=== PATIENT | male | born 1950 | race Caucasian/White ===

== ENCOUNTER 2019-01-12 23:26 | Inpatient (IN) | payer MEDICAID, OTHER ==
[~2019-01-12] VITALS: Ht 180.3 cm; Wt 134.3 kg
[2019-01-12 23:30] VITALS: BP 133/102
--- NOTE | 2019-01-12 23:39 | NUR ---
PT AMBULATED TO ER BED 01
[2019-01-12] MEDS ORDERED: NACL 0.9% 500 ML IV SCH (23:45)
--- NOTE | 2019-01-13 00:14 | NUR ---
PT TO ED BIB FAMILY WITH C/O CONFUSION X 1 DAY. PT IS ALERT TO NAME, BIRTHDAY, PLACE, AND EVENT. PT DENIES ANY RECENT FALL OR TRAUMA. PT IS ANSWERING QUESTIONS WITH APPROPRIATE RESPONSES BUT GARBLED, MUMBLED SPEECH. PERIORBITAL SWELLING NOTED. ARM HACK DRIVER EQUAL. PUPILS ARE EQUAL AND REACTIVE WITH NORMAL SIZE. PT PLACED INTO BED, PENDING MD VOGT.
[2019-01-13 00:31] LABS: BASOPHILS % (AUTO) 0.3 % (0.0-2.0); EOSINOPHILS # (AUTO) 0.1 K/uL (0-0.4); EOSINOPHILS % (AUTO) 1.2 % (0.0-4.0); HEMATOCRIT 35.1 % (36-52); HEMOGLOBIN 11.8 g/dL (12.0-18.0); LYMPHOCYTES % (AUTO) 12.9 % (20.5-51.1); MEAN CORPUSCULAR HEMOGLOBIN 33 pg (27-31); MEAN CORPUSCULAR HGB CONC 34 g/dL (33-37); MONOCYTES # (AUTO) 0.5 K/uL (0.8-1.0); MONOCYTES % (AUTO) 5.9 % (1.7-9.3); NEUTROPHILS # (AUTO) 6.4 K/uL (1.8-7.7); NEUTROPHILS % (AUTO) 79.7 % (42.2-75.2); PLATELET COUNT (AUTO) 151 K/uL (140-450); RED BLOOD CELL COUNT(AUTO) 3.58 MIL/uL (4.20-6.10)
[2019-01-13 01:40] LABS: CARBON DIOXIDE 30.4 mmol/L (21-32); CREATININE 1.4 mg/dL (0.7-1.3); POTASSIUM 3.4 mmol/L (3.5-5.1)
[2019-01-13] MEDS ORDERED: LISI-420 PO (01:45)
[2019-01-13] MEDS ORDERED: ZYL300 PO (01:45)
[2019-01-13] MEDS ORDERED: RIVA20TA PO (01:45)
[2019-01-13] MEDS ORDERED: TAMS0.4C96 PO (01:45)
[2019-01-13] MEDS ORDERED: FURO40TA9 PO (01:45)
[2019-01-13] MEDS ORDERED: BUS5 PO (01:45)
[2019-01-13] MEDS ORDERED: METO25TE2 PO (01:45)
[2019-01-13] MEDS ORDERED: SIMV40TA1 PO (01:45)
[2019-01-13 01:47] LABS: APPEARANCE,URINE CLEAR (CLEAR); BILIRUBIN,URINE NEGATIVE (NEGATIVE); BLOOD, URINE TRACE-I (NEGATIVE); COLOR,URINE YELLOW (YELLOW); LEUKOCYTE ESTERASE ,URINE NEGATIVE (NEGATIVE); NITRITE, URINE NEGATIVE (NEGATIVE); UGLUCOSE NEGATIVE (NEGATIVE)
[2019-01-13] MEDS ORDERED: ENOXAPARIN 40 MG/0.4 ML SYR SUBQ ONE (01:50)
[2019-01-13] MEDS ORDERED: ENOXAPARIN 100 MG/ML SYR SUBQ ONE (01:50)
[2019-01-13 02:36] LABS: TOTAL BILIRUBIN 0.7 mg/dL (0.0-1.0)
--- NOTE | 2019-01-13 02:36 | NUR ---
PT SLEEPING AT THIS TIME. NO DISTRESS NOTED. ALL MEDICATIONS GIVEN ORDERED, PT TOLERATED WELL.
[2019-01-13 02:39] LABS: ALBUMIN 3.7 g/dL (3.4-5.0)
[2019-01-13 02:47] LABS: WBC,URINE 0-5 /HPF (0-5)
[2019-01-13] MEDS ORDERED: LORazepam 2 MG/ML VIAL IVP PRN (02:50)
[2019-01-13] MEDS ORDERED: MORPHINE SULFATE 2 MG/ML SYR IVP PRN (02:50)
[2019-01-13] MEDS ORDERED: MORPHINE SULFATE 4 MG/ML SYR IVP PRN (02:50)
--- NOTE | 2019-01-13 03:45 | NUR ---
RECEIVED BEDSIDE REPORT FROM JASON IGLESIAS. PT IS AAO 2-3. ON ROOM AIR. RESPIRATIONS ARE EQUAL AND UNLABORED. PT HAS SMALL CUT ON R ELBOW AND KNEE. IV ON LAC 20G SL. PT WITH A-FIB PER NURSE WILL GO TO . RECEIVED LOVENOX IN ER. C/C ALOC PER FAMILY. VOICE IS MUFFLED AND DIFFICULT TO UNDERSTAND. HAS PERIORBITAL SWELLING AND PALE. SWELLING ON LIPS. PITTING ON LOWER EXTREMITIES NON PITTING. PATIENT PUT ON FALL PRECAUTION. MRSA SWAB OBTAINED. VS ARE STABLE. PLAN OF CARE DISCUSSED. CALL LIGHT WITHIN REACH
--- NOTE | 2019-01-13 03:45 | NUR ---
Patient will be admitted to care of DR MUSA. Admited to TELEMETRY. Will go to room 105-A. Belongings list completed. Report to HARRIS CASTILLO.
[2019-01-13 04:00] VITALS: BP 130/97
--- NOTE | 2019-01-13 04:30 | NUR ---
PATIENT IS IN BED. ABLE TO ANSWER QUESTION BUT DIFFICULT TO UNDERSTAND. VOICE IS MUFFLED. PT WITH INCREASING RESTLESS. VS STABLE. FALL PRECAUTION IN PLACE. WILL CONTINUE TO MONITOR CLOSELY.
[2019-01-13] MEDS: NACL 0.9% 1,000 ML IV SCH ×2 (04:32→13:57)
[2019-01-13] MEDS: LEVOTHYROXINE 0.05 MG TAB PO SCH (05:36)
--- NOTE | 2019-01-13 05:46 | NUR ---
PATIENT SHOWED ON EKG RHYTHM A TWO SECOND PAUSE. PT REMAINS AAOX3. Addendum: 01/13/19 at 0632 by Belle Luis RN VS: 123/77 97HR, 95% 16 97.4
--- NOTE | 2019-01-13 06:25 | NUR ---
PATIENT RESTLESS. CHARGE NURSE IN TO SEE PATIENT. VS: 133/68 HR 104 97% 2L O2. WILL CONTINUE TO MONITOR.
--- NOTE | 2019-01-13 07:05 | NUR ---
GAVE BEDSIDE REPORT TO ROXANA RN. PT STILL REMAINS RESTLESS IN BED. OPENS EYES ON COMMAND. KNOWS NAME. DATE OF AND PLACE. VITAL SIGNS ARE STABLE BLOOD SUGAR 128. ENDORSED FOR CONTINUITY POC.
--- NOTE | 2019-01-13 07:06 | NUR ---
RECEIVED REPORT FROM PM NURSE TA BEDSIDE. PT VERY AGITATED, KEEPS PULLING OUT THINGS , HAS WHITISH SALIVA SECRETION FROM HIS MOUTH AT THIS TIME. VS RECORDED BP 121/81, T 97.2, HR 92, RR 20, O2 97% ON NC 3LPM. BS RECORDED 128. PT APPEARS RESTLESS. ATIVAN 0.5 ML ADMINISTERED BY PM NURSE AROUND 0537. PAGED DR MACHUCA. WAITING FOR HIS CALL.
[2019-01-13 08:00] VITALS: BP 121/81
--- NOTE | 2019-01-13 08:15 | NUR ---
RAPID RESPONSE CALLED ON PT . PT LESS RESPONDING AND HIGHLY AGITATED. PT WAS ADMINISTERED ATIVAN IN AM. ER MD CAME, CHECKED ON THE PT. VS BP 118/82, 81, O2 SAT 98% ON 3LPM, RR 20. PT HAS WHITISH SALIVA SECRETION FROM THE MOUTH. PER PM NURSE, PT DROVE HOME FROM [place]OR[place] AND WAS BROUGHT IN TO ER BY HIS SON WHEN PT STARTED APPEARING PALE AND ALOC. ALL SAFETY MEASURE IN PLACE. IVF INFUSING WELL. WILL CONTINUE TO MONITOR PT.
--- NOTE | 2019-01-13 08:34 | NUR ---
PATIENT HAS BEEN SCREENED AND CATEGORIZED HIGH NUTRITION RISK. PATIENT WILL BE SEEN WITHIN 1-2 DAYS OF ADMISSION. 01/13/19-01/14/[address]
--- NOTE | 2019-01-13 09:29 | NUR ---
MD SHANKAR CALLED BACK. UPDATED HIM ON PT STATUS. RECEIVED ORDER TO DISCONTINUE ATIVAN , FOR SOFT RESTRAIN FOR AGITATION AND ORDERED TO PUT DR. AVERY FOR CARDIAC CONSULT. PER MD SIMPSON, CONTINUE TO MONITOR PT. UPDATED ON PT HAVING WHITISH SECRETION FORM HIS MOUTH, PT MORE AGITATED AND LESS RESPONSIVE THEN BEFORE. PT KEEPS MOVING ALL HIS EXTREMITY , STILL AGITATED. WILL KEEP MONITORING THE PT.
--- NOTE | 2019-01-13 09:39 | NUR ---
APPLIED SOFT RESTRAIN ON PTS BOTH WRIST PER MD ORDER. PT PULLING HIS IV TUBINGS AND TRYING TO GET OUT OF THE BED. PT STILL AGITATED, KEEPS MOVING HIS EXTREMITY ALL THE TIME. KEEPS MAKING LOUD VOICE , HAS CONTINUOS WHITISH SECRETION FORM HIS MOUTH. MD AWARE. WILL KEEP MONITORING THE PT. DR AVERY ON THE CASE FOR HIGH TROPONIN LEVEL. WILL CONTINUE TO MONITOR PT.
--- NOTE | 2019-01-13 10:36 | NUR ---
HALAL MEAT PACKER AT THE BEDSIDE, CHANGING PT. PULLED AND REPOSITIONED PT. STILL APPEARS AGITATED, TOOK HIS RT WRIST RESTRAIN OFF. WILL CONTINUE TO MONITOR PT.
--- NOTE | 2019-01-13 11:22 | NUR ---
PT MOVING HIS EXTREMITY . KICKING THE BED AND THROWING THE SIDE RAILS PADDING. PT STATES HAS PAIN, WANTS MEDS FOR PAIN. ADMINISTERED PAIN MEDS ORDERED. VS STABLE . WILL CONTINUE TO MONITOR PT.
[2019-01-13 12:00] VITALS: BP 122/83
--- NOTE | 2019-01-13 13:40 | NUR ---
HR AT THIS 64 AT THIS TIME. FAMILY AT THE BEDSIDE. STARTED IV LINE ON RT WRIST 22 G. WILL CONTINUE TO MONITOR PT.
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
--- NOTE | 2019-01-13 14:22 | NUR ---
01/13/19 RD INITIAL ASSESSMENT COMPLETED PLEASE REFER TO NUTRITION ASSESSMENT UNDER CARE ACTIVITY FOR ESTIMATED NUTRITIONAL NEEDS. RD RECOMMENDATIONS: 1. RECOMMEND ADVANCE DIET TOELRATED TO CARDIAC DUE TO ELEVATED TROPONIN. 2. RD WILL F/U 2-3DAYS; HIGH RISK. RUCHI BISHOP, RD
[2019-01-13] MEDS ORDERED: IBUP1TAB PO (14:25)
[2019-01-13] MEDS ORDERED: CEPH250C16 PO (14:25)
[2019-01-13] MEDS ORDERED: FLUMAZENIL 0.5 MG/5 ML VIAL IVP SCH (15:20)
[2019-01-13 16:00] VITALS: BP 110/79
[2019-01-13] MEDS: CEPHALEXIN 500 MG CAP PO SCH ×2 (17:00→21:07)
--- NOTE | 2019-01-13 17:00 | NUR ---
CHECKED ON THE PT. FAMILY AT THE BEDSIDE. PT MORE AWAKE THAN BEFORE , DID BEDSIDE EVALUATION, PT PARTIALLY ABLE TO SWALLOW THE APPLE SAUCE. PT NOTIFIED THAT HIS ORAL MEDS WILL BE PUT ON HOLD AT THIS TIME. WILL CONTINUE TO MONITOR PT.
--- NOTE | 2019-01-13 19:30 | NUR ---
RECEIVED BEDSIDE REPORT FROM DAY SHIFT NURSE. PATIENT AWAKE, ALERT, AND COOPERATIVE. FAMILY AT BEDSIDE. RESPIRATION EVEN UNLABORED ON 2L NC. SKIN IS WARM AND DRY. IV PATENT AND INTACT. PLAN OF CARE WAS DISCUSSED. ALL SAFETY MEASURES IN PLACE. BED IS AT LOW POSITION. CALL LIGHT WITHIN REACH AND VERBALIZES ITS USE. WILL CONTINUE TO MONITOR.
--- NOTE | 2019-01-13 19:37 | NUR ---
PT RESTRAIN CANCELLED. PT MORE AWAKE AND ALERT. PT STABLE AT THIS TIME.
--- NOTE | 2019-01-13 19:38 | NUR ---
ENDORSED PT TO PM NURSE AT BEDSIDE. PT IN STABLE CONDITION.
[2019-01-13 20:00] VITALS: BP 110/79
--- NOTE | 2019-01-13 20:00 | NUR ---
INITIAL ASSESSMENT DONE. PATIENT IS MORE AWAKE NOW. ABLE TO FOLLOW COMMANDS. VITALS WERE TAKEN. FAMILY AT BEDSIDE. WILL CONTINUE TO MONITOR.
--- NOTE | 2019-01-13 21:00 | NUR ---
ALL SCHEDULED MEDS WERE GIVEN PER ORDER. NO ASE NOTED. WILL CONTINUE TO MONITOR.
[2019-01-13] MEDS: SIMVASTATIN 40 MG TAB PO SCH (21:07)
[2019-01-13] MEDS: RIVAROXABAN 10 MG TAB PO SCH (21:08)
[2019-01-13] MEDS: BLOOD GLUCOSE MONITORING 1 DEV DEV FS SCH (21:15)
--- NOTE | 2019-01-13 22:00 | NUR ---
PATIENT WATCHING TV WITH FAMILY AT BEDSIDE. RESPIRATION EVEN UNLABORED ON 2L NC. NO DISTRESS NOTED. WILL CONTINUE TO MONITOR
[2019-01-14] VITALS (26 sets, daily range): BP systolic 64–136; BP diastolic 44–94
--- NOTE | 2019-01-14 | NUR ---
VITALS WERE TAKEN. PATIENT CONDITION STABLE. NO DISTRESS NOTED. WILL CONTINUE TO MONITOR
[2019-01-14] MEDS: NACL 0.9% 1,000 ML IV SCH ×3 (00:57→22:26)
--- NOTE | 2019-01-14 02:00 | NUR ---
CHECKED PATIENT. PATIENT SLEEPING RESPIRATION EVEN UNLABORED ON 2L NC. NO DISTRESS NOTED. WILL CONTINUE TO MONITOR
--- NOTE | 2019-01-14 04:00 | NUR ---
VITALS WERE TAKEN. PATIENT KEEPS MOVING ALL HIS EXTREMITY AND APPEARED TO BE RESTLESS. WILL CONTINUE TO MONITOR
[2019-01-14] MEDS: LEVOTHYROXINE 0.05 MG TAB PO SCH (06:21)
[2019-01-14] MEDS: BLOOD GLUCOSE MONITORING 1 DEV DEV FS SCH ×4 (06:25→21:12)
--- NOTE | 2019-01-14 06:34 | NUR ---
PATIENT ACCIDENTALLY PULLED HIS IV. NO ACTIVE BLEEDING SEEN. CANNULA INTACT. INSERTED NEW IV SITE LEFT HAND 24 G. WILL CONTINUE TO MONITOR
[2019-01-14 06:55] LABS: BASOPHILS % (AUTO) 0.2 % (0.0-2.0); EOSINOPHILS # (AUTO) 0.1 K/uL (0-0.4); HEMOGLOBIN 11.9 g/dL (12.0-18.0); LYMPHOCYTES # (AUTO) 0.8 K/uL (2.0-11.5); LYMPHOCYTES % (AUTO) 11.2 % (20.5-51.1); MEAN CORPUSCULAR HEMOGLOBIN 33 pg (27-31); MEAN CORPUSCULAR HGB CONC 33 g/dL (33-37); MEAN CORPUSCULAR VOLUME 98.9 fL (80-94); MONOCYTES # (AUTO) 0.3 K/uL (0.8-1.0); MONOCYTES % (AUTO) 4.3 % (1.7-9.3); NEUTROPHILS # (AUTO) 6.3 K/uL (1.8-7.7); NEUTROPHILS % (AUTO) 83.3 % (42.2-75.2); PLATELET COUNT (AUTO) 146 K/uL (140-450); RED BLOOD CELL COUNT(AUTO) 3.64 MIL/uL (4.20-6.10); RED CELL DISTRIBUTION WIDTH 16.4 % (11.6-13.7); WHITE BLOOD COUNT (AUTO) 7.5 K/uL (4.8-10.8)
--- NOTE | 2019-01-14 07:12 | NUR ---
ENDORSED PATIENT TO DAY SHIFT NURSE. PATIENT CONDITION STABLE
[2019-01-14 07:13] LABS: ALBUMIN 3.6 g/dL (3.4-5.0); ANION GAP 8.8 (8-16); CARBON DIOXIDE 30.8 mmol/L (21-32); MAGNESIUM 2.2 mg/dL (1.8-2.4); PHOSPHORUS 3.2 mg/dL (2.5-4.9); POTASSIUM 3.6 mmol/L (3.5-5.1); TOTAL BILIRUBIN 0.6 mg/dL (0.0-1.0)
--- NOTE | 2019-01-14 08:08 | NUR ---
RECEIVED REPORT FROM PM NURSE . PT MOVING AROUND, RESPONSIVE TO VOICE. OPENS HIS EYES WHEN CALLED BY HIS NAME AND ABLE TO FOLLOW COMMAND. APPEARS RESTLESS AND KEEPS MOVING AROUND. PT TAKES HIS NC OFF ALL THE TIME, AND PULLS HIS IV OUT. REORIENTED PT THAT HE IS IN THE HOSPITAL, WILL BE TAKEN GOOD CARE OF. PT STATES HE UNDERSTANDS. IV LINE ON HIS LFT WRIST. INFORMED HIM NOT TO TAKE HIS IV OUT AND KEEP OXYGEN ON. STATES WILL. PT NEEDS CONTINUOUS MONITORING. WILL CONTINUE TO MONITOR PT.
[2019-01-14] MEDS: metFORMIN 500 MG TAB PO SCH ×2 (09:00→17:00)
[2019-01-14] MEDS ORDERED: busPIRone 5 MG TAB PO SCH (09:00)
--- NOTE | 2019-01-14 09:33 | NUR ---
ADMINISTERED MEDS TO PT ORDERED. PT STILL IS AGITATED. PT IS ON O2 2LPM, HAS O2 SAT 88%.O2 SAT KEEPS FLUCTUATING FROM 85-95%. HR 78 AND BP 159/79. PT KEEPS MOVING HIS BODY ALL AROUND AND HIS EXTREMITY. RESPONDS TO TO HIS BUT IS PARTIALLY AWAKE. WILL CONTINUE TO MONITOR PT. WILL CALL MD IF PTS O2 SAT KEEPS FLUCTUATING.
[2019-01-14] MEDS: TAMSULOSIN 0.4 MG CAP PO SCH (09:56)
[2019-01-14] MEDS: ALLOPURINOL 300 MG TAB PO SCH (09:57)
[2019-01-14] MEDS: FUROSEMIDE 40 MG TAB PO SCH (09:57)
[2019-01-14] MEDS: CEPHALEXIN 500 MG CAP PO SCH ×4 (09:57→22:00)
--- NOTE | 2019-01-14 10:00 | NUR ---
PAGED DR MACHUCA REGARDING THE LOWER O2 SAT , PT ON NC. RT PUT THE OXYGEN MASK , O2 SAT 91% AT THIS TIME. WILL CONTINUE TO MONITOR PT.
--- NOTE | 2019-01-14 13:18 | NUR ---
RECEIVED SOFT RESTRAIN FROM MD MACHUCA PT KEEPS PULLING HIS IV LINES AND BIPAP. PT NEEDS RESTRAIN FOR TO KEEP THE BIPAP ON THE PATIENT ORDERED LEVOTHYROXINE 100 MCG IV DAILY. PT SEEN BY MD MACHUCA AT HIS BEDSIDE.
[2019-01-14] MEDS ORDERED: LEVOTHYROXINE SODIUM 100 MCG VIAL IV SCH (14:00)
--- NOTE | 2019-01-14 14:17 | NUR ---
ADMINISTERED MEDS TO PT ORDERED. PT ON BIPAP AT THIS TIME. PT RESTING COMFORTABLY. NO SIGN OF DISTRESS NOTED. ALL SAFETY MEASURE IN PLACE. WILL CONTINUE TO MONITOR PT.
--- NOTE | 2019-01-14 16:20 | NUR ---
CHECKED ON PT. FAMILY AT THE BEDSIDE. PT IS ON BIPAP, RESTING COMFORTABLY IN HIS BED. ALL SAFETY MEASURE IN PLACE. WILL CONTINUE TO MONITOR PT.
--- NOTE | 2019-01-14 16:49 | NUR ---
CALLED DR. JAMES MACHUCA TO REVIEW [facility] SAMPLE REPORT [phone] SPOKE TO TIFFANIE/AMY FOREMENTIONED TO DEVIN ISIDRO
--- NOTE | 2019-01-14 17:05 | NUR ---
CALLED RAMONA/CLEAN UP WORKER [phone] INFORMED FOREMENTIONED OF CRITICAL ABG SAMPLE RE[facility] AND CALL TO DR JAMES MACHUCA [phone] SPOKE TO TIFFANIE/AMY RN TO ALSO CALL
--- NOTE | 2019-01-14 17:15 | NUR ---
RECEIVED CALL FROM MD LORE GARCIA, READ BACK THE ABG RESULTS. RECEIVED INTUBATION ORDER FOR THE PATIENT. CHARGE NURSE AWARE. TRANSFERRING PT TO ICU. CALLED RT.WILL CONTINUE TO MONITOR PT. CALLED FAMILY MEMBER SAURABH GARG [phone]. CALL NOT RECEIVED FROM THE FAMILY MEMBER.
[2019-01-14] MEDS ORDERED: LORazepam 2 MG/ML VIAL IVP PRN (18:10)
--- NOTE | 2019-01-14 18:15 | NUR ---
PT TRANSFERRED PT TO ICU , REPORT GIVEN TO THE ICU NURSE. FAMILY SAURABH PARMAR CONTACTED AT [phone], NO CALL RECEIVED . CALLED PTS EX LINCOLN IBANEZ AT [phone] , UNABLE TO REACH THE PERSON , CONTACTED MULTIPLE TIMES. PHONE NUMBER PROVIDED TO ICU NURSE. PT TRANSFERRED TO ICU FOR ABNORMAL ABG , PT TO GET INTUBATED PER DR LORE ROBERSON. ER DOCTOR TO INTUBATE PATIENT.
--- NOTE | 2019-01-14 18:15 | NUR ---
PT RECEIVED FROM TELE UNIT. ON BIPAP. RESTLESS. RESPONSE TO PAINFUL STIMULI. PLACED PT ON MONITOR. HR 112, BP 94/71, SPO2 95%11 25. SKIN DRY AND WARM TO TOUCH. LEFT HAND 24G NOTED. NS INFUSING AT 90 ML/HR. BRUISES NOTED ON BOTH UPPER EXTREMITIES. SKIN TEAR NOTED ON RIGHT KNEE. KEPT BED IN LOW POSITION LOCKED. CONTINUE TO MONITOR. Addendum: 01/14/19 at 2010 by Carolyn Suggs RN PT WAS RECEIVED FROM TELEMETRY UNIT AT 1800. VS DURING ARRIVAL WAS HR 87 RR 20 BP 124/59 SPO2 97%
--- NOTE | 2019-01-14 18:15 | NUR ---
PT RECEIVED FROM [facility] UNIT. ON BIPAP. RESTLESS. RESPONSE TO PAINFUL STIMULI. PLACED PT ON MONITOR. HR 112, BP 94/71, SPO2 95%11 25. SKIN DRY AND WARM TO TOUCH. LEFT HAND 24G NOTED. NS INFUSING AT 90 ML/HR. BRUISES NOTED ON BOTH UPPER EXTREMITIES. SKIN TEAR NOTED ON RIGHT KNEE. KEPT BED IN LOW POSITION LOCKED. CONTINUE TO MONITOR. Addendum: 01/15/19 at 1517 by Mariaelena Johnson RN DISCARD. DUPLICATE CHARTING.
--- NOTE | 2019-01-14 18:20 | NUR ---
RECEIVED CALL FROM DR. TORREZ. GAVE VERBAL ORDER FOR INTUBATION, START PROPOFOL AT 40 MCG/KG/MIN, RASS -2, CHEST X-RAY, ABG AFTER 1 HOUR, ATIVAN 2MG Q2H PRN, OG-TUBE INSERTION AND INSERT PATEL CATHETER. GAVE VERBAL ORDERED NPO EXCEPT MEDS OVER NIGHT.
--- NOTE | 2019-01-14 18:30 | NUR ---
ALINA READY FOR INTUBATION. DR. FALLON IN FOR INTUBATION. PT PULLED OUT IV CANNULA. UNABLE TO START IV LINE. DR. FALLON AWARE.
--- NOTE | 2019-01-14 18:58 | NUR ---
INTUBATION DONE BY DR. FALLON. VSS. RT AT THE BEDSIDE.
--- NOTE | 2019-01-14 19:00 | NUR ---
INSERTED PATEL CATHETER PER DR. TORREZ'S ORDER.
[2019-01-14] MEDS ORDERED: ETOMIDATE 20 MG/10 ML VIAL IVP ONE (19:10)
[2019-01-14] MEDS ORDERED: SUCCINYLCHOLINE CHLORIDE 200 MG/10 ML VIAL IVP ONE (19:10)
--- NOTE | 2019-01-14 19:15 | NUR ---
INSERTED OG-TUBE PER DR. TORREZ'S ORDER.
--- NOTE | 2019-01-14 19:20 | NUR ---
REPORT GIVEN TO DUST OPERATOR RN FOR CONTINUITY OF CARE.
--- NOTE | 2019-01-14 19:30 | NUR ---
RECEIVED REPORT FROM MORNING RN, SUSAN, FOR CONTINUITY OF CARE. VS STABLE AT THIS TIME. FLACC 0. PT TO BE STARTED ON PROPOFOL DRIP. PT NOTED WITH LOW TEMPERATURE AT 95.3; WARMING MEASURES PUT IN PLACE. WILL RECHECK. S1+S2 HEARD. AFIB ON MONITOR. PULSES ARE PALPABLE IN ALL EXTREMITIES. LUNG SOUNDS RHONCHI. ETT TO VENT WITH SETTINGS A/C VC WITH FIO2 AT 100%, TV 550, RATE 16, AND PEEP 5. NO SIGNS OF RESPIRATORY DISTRESS NOTED. OGT IN PLACE. PLACEMENT CHECKED. SECURED IN PLACE. ABDOMEN ROUND, SOFT AND NONDISTENDED. BS ACTIVE IN ALL QUADRANTS. PATEL CATHETER IN PLACE DRAINING CLEAR AND YELLOW URINE. ADEQUATE URINARY OUTPUT NOTED AT THIS TIME. RECEIVED PT WITH PERIPHERAL IV ACCESS ON LEFT HAND AT 24G. LINE IS INTACT AND ASYMPTOMATIC. NS RUNNING AT 90ML/HR. HOB AT 30 DEGREES. ALL SAFETY PRECAUTIONS ARE IN PLACE. CALL LIGHT WITHIN REACH. PT HAS SOFT WRIST RESTRAINTS ON BUE. WILL CONTINUE TO MONITOR PT.
[2019-01-14] MEDS: PROPOFOL 1000 MG/100 ML PREMIX 100 ML IV PRN ×2 (19:45→23:00)
--- NOTE | 2019-01-14 19:59 | NUR ---
PHONE CALL TO TELE UNIT FOR PTS BELONGINGS; SPOKE WITH ROXANA RN; PER RECORD, PT HAS BELONGINGS, WHEN PT BROUGHT IN THE UNIT, NO BELONGINGS RECEIVED.ROXANA IGLESIAS AWARE.
--- NOTE | 2019-01-14 20:04 | NUR ---
CALLED PTS EX- LINCOLN BELLO [phone]. [facility] HAS ALL THE PTS BELONGINGS WITH HER. UPDATED ON PTS STATUS. [facility] SHE IS PRIMARY PERSON TO CONTACT FOR ANY CHANGE OF CONDITION IN PTS STATUS. [facility] WILL BE TOMORROW TO VISIT PT. LIVES IN [place].
--- NOTE | 2019-01-14 20:30 | NUR ---
PT ALREADY ON PROPOFOL DRIP WITH DRY WEIGHT 132 KGS
[2019-01-14] MEDS: SIMVASTATIN 40 MG TAB PO SCH (21:09)
[2019-01-14] MEDS: RIVAROXABAN 10 MG TAB PO SCH (21:09)
[2019-01-14] MEDS ORDERED: CEPHALEXIN 500 MG CAP ONE (21:51)
--- NOTE | 2019-01-14 22:31 | NUR ---
PAGED DR. TORREZ.
--- NOTE | 2019-01-14 22:33 | NUR ---
RECEIVED A CALL BACK FROM DR. TORREZ; INFORMED HIM REGARDING THE CURRENT BG AND THAT PT IS NPO. IVF ORDER CHANGED. INFORMED DR. TORREZ REGARDING THE CHEST X-RAY RESULT. PER DR. TORREZ THE RT ALREADY CALLED HIM AND HE GAVE ORDERS.
--- NOTE | 2019-01-14 22:46 | NUR ---
X-RAY BEING TAKEN AT BEDSIDE AT THIS TIME. VS STABLE AT THIS TIME. PT REMAINS ON PROPOFOL DRIP. RASS -2
[2019-01-14] MEDS: DEXT 5% /NACL 0.9% 1,000 ML IV SCH (22:47)
--- NOTE | 2019-01-14 22:58 | NUR ---
DR. AVERY AT BEDSIDE. UPDATED HIM REGARDING THE PT'S CONDITION. INFORMED DR. AVERY HOW THE DR WOULD GO DOWN PER THE MONITOR BUT WILL GO BACK UP TO NORMAL AND THIS HAPPENS WHEN HE IS MOVING AROUND. RECEIVED NO NEW ORDERS FROM DR. AVERY
[2019-01-15] VITALS (106 sets, daily range): BP systolic 73–136; BP diastolic 26–99
--- NOTE | 2019-01-15 00:05 | NUR ---
NO CHANGE IN PT'S CONDITION AT THIS TIME. RASS -2. AFIB ON MONITOR. PT STILL ON PROPOFOL DRIP. RESPIRATIONS ARE EVEN AND UNLABORED. PT DOES NOT APPEAR TO BE EXPERIENCING ANY DISCOMFORT AT THIS TIME. ALL SAFETY PRECAUTIONS REMAIN IN PLACE.
--- NOTE | 2019-01-15 01:48 | NUR ---
RESPIRATIONS EVEN AND UNLABORED. RASS -2. VS WNL AT THIS TIME. PT TURNED AND REPOSITIONED. AFIB ON MONITOR. PT STILL ON PROPOFOL DRIP AT 30MCG/KG/MIN. PERIPHERAL IV REMAINS INTACT AND ASYMPTOMATIC. ALL SAFETY PRECAUTIONS ARE IN PLACE. [facility] AT 30 DEGREES. WILL CONTINUE TO MONITOR PT.
[2019-01-15] MEDS: PROPOFOL 1000 MG/100 ML PREMIX 100 ML IV PRN ×3 (03:06→16:26)
--- NOTE | 2019-01-15 03:55 | NUR ---
MORNING CARE PROVIDED TO PT. PT TOLERATED BEING TURNED AND REPOSITIONED FAIRLY. NO SKIN BREAKDOWN NOTED. ALL LINENS WERE CHANGED. PT STILL HAS PERIPHERAL IV ACCESS IN PLACE THAT ARE PATENT, INTACT, AND ASYMPTOMATIC. OGT STILL IN PLACE. KEPT HOB AT 30 DEGREES. BED AT THE LOWEST POSSIBLE POSITION. ALL SAFETY PRECAUTIONS ARE IN PLACE.
--- NOTE | 2019-01-15 05:41 | NUR ---
NO CHANGE IN PT'S CONDITION AT THIS TIME. VS STABLE. AFIB ON MONITOR. OXYGEN SATURATION WNL. RESPIRATIONS ARE EVEN AND UNLABORED. WILL CONTINUE TO MONITOR PT.
[2019-01-15 06:15] LABS: BASOPHILS % (AUTO) 0.3 % (0.0-2.0); EOSINOPHILS # (AUTO) 0.2 K/uL (0-0.4); EOSINOPHILS % (AUTO) 1.7 % (0.0-4.0); HEMATOCRIT 33.6 % (36-52); HEMOGLOBIN 11.2 g/dL (12.0-18.0); LYMPHOCYTES % (AUTO) 10.5 % (20.5-51.1); MEAN CORPUSCULAR HEMOGLOBIN 33 pg (27-31); MEAN CORPUSCULAR HGB CONC 33 g/dL (33-37); MEAN CORPUSCULAR VOLUME 98.4 fL (80-94); MONOCYTES # (AUTO) 0.5 K/uL (0.8-1.0); NEUTROPHILS # (AUTO) 7.5 K/uL (1.8-7.7); NEUTROPHILS % (AUTO) 81.5 % (42.2-75.2); PLATELET COUNT (AUTO) 127 K/uL (140-450); RED BLOOD CELL COUNT(AUTO) 3.42 MIL/uL (4.20-6.10); WHITE BLOOD COUNT (AUTO) 9.2 K/uL (4.8-10.8)
--- NOTE | 2019-01-15 06:19 | NUR ---
PT'S BP FLUCTUATES WITH SBP BETWEEN 90S TO 100S. WILL TITRATE DOWN PROPOFOL FIRST.
[2019-01-15] MEDS: BLOOD GLUCOSE MONITORING 1 DEV DEV FS SCH ×4 (06:31→22:00)
--- NOTE | 2019-01-15 07:15 | NUR ---
REPORT GIVEN TO MORNING RNJEANINE, FOR CONTINUITY OF CARE. VS STABLE AT THIS TIME.
--- NOTE | 2019-01-15 07:27 | NUR ---
RECEIVED INTUBATED PT ON VENT. ETT 8.0 SECURED @24 TEETH/GUMS. AIRWAY IS PATENT AND ETT IS SECURE WITH ANCHOR FAST DEVICE. VENT SETTINGS AC/VC 16, VT 550, PEEP 5 AND FIO2 40%. PT IS SEDATED AT THIS TIME NOT IN ANY DISTRESS. VENT IS PLUGGED INTO A RED OUTLET WITH ALARMS ON AND FUNCTIONING. THERE IS NO BITING OR KINKING OF ETT. WILL CONTINUE TO MONITOR.
[2019-01-15] MEDS: TAMSULOSIN 0.4 MG CAP PO SCH (07:59)
[2019-01-15] MEDS: metFORMIN 500 MG TAB PO SCH ×2 (08:00→19:31)
[2019-01-15] MEDS: FUROSEMIDE 40 MG TAB PO SCH (08:00)
--- NOTE | 2019-01-15 08:00 | NUR ---
RECEIVED PATIENT WITH ENDOTRACHEAL TUBE SIZE 8, 24 IN THE GUMS ON VENTILATOR: SETTINGS AC/VC 16, VT 550, PEEP 5 AND FIO2 40%, ATRIAL FIBRILLATION ON MONITOR, ON PROPOFOL DRIP-DRY WEIGHT 132 KGS., ON BILATERAL SOFT WRIST RESTRAINTS, WITH OGT TUBE NPO EXCEPT MEDICATIONS AT THIS TIME, SOFT ABDOMEN, NO ASPIRATED, NGT PATENT ON AUSCULTATION, WITH PATEL CATHETER, CLEAR YELLOW URINE NOTED IN THE URO BAG, SKIN INTACT, GENERALIZED SCABS, SKIN TEAR IN RIGHT KNEE NOTED, BLUISH/PURPLISH DISCOLORATION RIGHT HIP AND SMALL BLUISH/PURPLISH DISCOLORATION GENERALIZED, GENERALIZED SMALL RED SPOTS NOTED IN BOTH ARMS, GAUGE 22 AT RIGHT HAND, GAUGE 24 AT RIGHT HAND,
--- NOTE | 2019-01-15 08:00 | NUR ---
PATIENT HAS ECCHYMOTIC AREAS ON THE RIGHT SIDE-HIP, ELBOW, WRIST, AND LEG AREAS. ECCHYMOSIS ON BILATERAL FOREARMS.
--- NOTE | 2019-01-15 08:15 | NUR ---
NOTED SMALL NON BLANCHABLE REDNESS IN RIGHT WRIST. WILL TAKE PICTURE. VERSATEL APPLIED BARRIER
--- NOTE | 2019-01-15 08:20 | NUR ---
ICU CN MADE AWARE OF PATIENT'S SKIN ISSUES
--- NOTE | 2019-01-15 08:56 | NUR ---
DR. MACHUCA PAGED AND HE CALLED BACK. INFORMED PATIENT'S BP TREND SBP 80-90, MAP 60-65 AND NO CENTRAL LINE. PER PHYSICIAN OK TO START LEVOPHED IF NEEDED AND FOR PICC LINE INSERTION
[2019-01-15 08:58] LABS: ANION GAP 9.4 (8-16); CARBON DIOXIDE 31.8 mmol/L (21-32); CREATININE 1.3 mg/dL (0.7-1.3); POTASSIUM 3.2 mmol/L (3.5-5.1)
[2019-01-15 09:03] LABS: ALBUMIN 3.1 g/dL (3.4-5.0); TOTAL BILIRUBIN 0.7 mg/dL (0.0-1.0)
[2019-01-15] MEDS ORDERED: NOREPINEPHRINE 8 MG in DEXTROSE 5% 250 ML IV PRN (09:10)
--- NOTE | 2019-01-15 09:15 | NUR ---
CALLED AGATA HER NUMBER IS IN THE PATIENT'S FACE SHEET LISTED NEXT OF KIN AND MADE HER AWARE OF THE PLAN AND INDICATION TO INSERT PICC LINE AND INFORMED HER THAT WILL CALL HER ONCE FR. MACHUCA WILL BE IN THE UNIT FOR ANY QUESTIONS SHE MAY HAVE. HARRIS SANTIAGO ALSO SPOKE TO AGATA
[2019-01-15] MEDS ORDERED: NOREPINEPHRINE 4 MG in DEXTROSE 5% 250 ML IV PRN (09:25)
--- NOTE | 2019-01-15 09:30 | NUR ---
CALLED PHARMACY STAFF THAT 3 9AM MEDICATIONS STILL NOT AVAILABLE. PER THEY "WILL SEND"
[2019-01-15] MEDS: ALLOPURINOL 300 MG TAB PO SCH (09:50)
[2019-01-15] MEDS: LEVOTHYROXINE SODIUM 100 MCG VIAL IV SCH (09:51)
[2019-01-15] MEDS: CEPHALEXIN 500 MG CAP PO SCH ×4 (09:53→21:49)
[2019-01-15] MEDS: DEXT 5% /NACL 0.9% 1,000 ML IV SCH ×2 (09:55→21:00)
--- NOTE | 2019-01-15 10:31 | NUR ---
SPOKE TO NURSE ABOUT NUTRITIONAL PLAN OF CARE DUE TO PATIENT BEING INTUBATED AND SEDATED. SHE WILL LET ME KNOW WHEN DOCTOR COMES IN. [address]ENJAMIN [address]
--- NOTE | 2019-01-15 10:52 | NUR ---
DR. MACHUCA AT BEDSIDE. PLAN "CONTINUE TO KEEP PATIENT SEDATED"
--- NOTE | 2019-01-15 12:09 | NUR ---
RD RECOMMENDATIONS FOR TUBE FEEDING CONSULTATION PLEASE REFER TO NUTRITION ASSESSMENT UNDER CARE ACTIVITY FOR ESTIMATED NUTRITIONAL NEEDS. 1. RECOMMEND JEVITY AT 55 ML/HR WITH PROSOURCE TID -THIS WILL PROVIDE 1764 KCAL AND 118 GM OF PROTEIN, WHICH MEETS 100% OF ESTIMATED NUTRIENT NEEDS 2. RECOMMEND FREE WATER FLUSH 115 ML Q4H [address]
--- NOTE | 2019-01-15 12:45 | NUR ---
PER PICC LINE NURSE-BILL, PICC LINE IS NOW OK FOR USE. PLACEMENT CONFIRMED BY XRAY. PROPOFOL DRIP AND FLUIDS TRANSFERRED TO PICC LINE
[2019-01-15] MEDS ORDERED: PANTOPRAZOLE 40 MG INJ VIAL IVP SCH (13:00)
--- NOTE | 2019-01-15 13:00 | NUR ---
PATIENTS LEFT WRIST IV FLUSHED WITH 10 ML NS AND IV DISCONTINUED.
--- NOTE | 2019-01-15 13:13 | NUR ---
PATIENT'S FAMILY AGATA, AND PATIENT'S BROTHER AT BEDSIDE. UPDATED OF PATIENT'S CONDITION
--- NOTE | 2019-01-15 13:45 | NUR ---
SPOKE TO PT'S SON JOZEF. STATES THAT HE IS THE NEXT OF KIN OF THE PT. HE ALSO WANTS FLORENCIO BELLO (PT'S EX } THE 2ND NEXT OF KIN ON THE PT'S FACE SHEET. ADMITTING HIRAM NOTIFIED.
--- NOTE | 2019-01-15 15:37 | NUR ---
PT TOLERATING VENT SETTINGS WELL. PT REMAINS SEDATED NOT IN ANY DISTRESS. WILL CONTINUE TO MONITOR.
[2019-01-15] MEDS: NOREPINEPHRINE 8 MG in DEXTROSE 5% 250 ML IV PRN (15:45)
--- NOTE | 2019-01-15 17:41 | NUR ---
PT REMAINS ON DOCUMENTED VENT SETTINGS. ETT IS SECURE WITH A PATENT AIRWAY. PT REMAINS SEDATED NOT IN ANY DISTRESS. VENT REMAIN ON AND FUNCTIONING.
[2019-01-15 17:44] LABS: BARBITURATE, URINE NEG. ng/ml (NEG <=200); BENZODIAZEPINE, URINE NEG. ng/mL (NEG <=200); CANNABINOID, URINE NEG. ng/mL (NEG <=50); COCAINE, URINE NEG. ng/mL (NEG <=300); OPIATE, URINE NEG. ng/mL (NEG <=2000); PHENCYCLIDINE SCREEN,URINE NEG. ng/mL (NEG <=25)
--- NOTE | 2019-01-15 19:19 | NUR ---
REPORT GIVEN TO NIGHTSHIFT NURSE LENNOX IGLESIAS. WILL CONTINUE POC.
--- NOTE | 2019-01-15 19:20 | NUR ---
RCV'D PT INTUBATED WITH 8.0 ETT AT 24 CM AT LIP. ETT IN PLACE AND SECURED WITH ANCHOR-FAST. VENT SETTINGS CHARTED. VENT IS CONNECTED TO RED OUTLET. ALARMS AUDIBLE. AMBU BAG AT BEDSIDE. NO SOB OR DISTRESS NOTED. WILL CONTINUE TO MONITOR.
--- NOTE | 2019-01-15 19:21 | NUR ---
RECEIVED BEDSIDE REPORT FROM MORNING SHIFT RNJEANINE. PT IS NONVERBAL, INTUBATED, ETT TO VENT, LUNG SOUNDS DIMINISHED ON UPPER/LOWER BILATERAL LOBES. ACVC MODE FIO2=40%, VT 550, RR=16, FLOW 40L/MIN, PEEP 5, PMAX 50. AFIB ON VESSEL CREW MEMBER. VSS, BP 119/56, RR=16, HR=87, SATING 98%, TEMP 98.1. Addendum: 01/15/19 at 2249 by Thuy Mejía RN ON JEVITY 1.[address], NO RESIDUAL NOTED, BOWEL SOUNDS ACTIVE X4. PATEL CATH IN PLACE URINE IS BARBARA IN COLOR. CLAIRE PICC LINE INFUSING LEVOPHED AT 2MCG/MIN, PROFOL AT 10MCG/KG/MIN. RIGHT WRIST 22 GAUGE PIV INTACT. MINOR SKIN TEAR ON RIGHT KNEE NOTED, COVERED WITH VERSATEL DRESSING. SKIN IS DRY/PATCHY. ON BILATERAL WRIST RESTRAINST AT THIS TIME. HOB ELEVATED ABOVE 30 DEG, SIDE RAILS UP X3, STANDARD PRECAUTIONS. DRY WEIGHT IS 132kg FOR PROPOFOL DRIP.
[2019-01-15] MEDS: SIMVASTATIN 40 MG TAB PO SCH (21:49)
--- NOTE | 2019-01-15 21:50 | NUR ---
PT SISTER, NERY AMIN, AT BEDSIDE TO SEE PATIENT.
[2019-01-15] MEDS: RIVAROXABAN 10 MG TAB PO SCH (21:51)
--- NOTE | 2019-01-15 22:38 | NUR ---
ORAL SUCTIONED WHITE SECRETIONS FROM MOUTH, OFF LEVOPHED AT 2215 CURRENT NOW BP 101/69, HR =91, SATING 99%, HR=16. PT REPOSITIONED MAX ASSIST X2, HOB ELEVATED.
[2019-01-16] VITALS (107 sets, daily range): BP systolic 74–150; BP diastolic 36–97
--- NOTE | 2019-01-16 01:55 | NUR ---
PT BACK ON LEVOPHED AT THIS TIME, DUE TO LOW BP 79/57. PT BECAME MILDLY AWAKE AND ATTEMPTED TO PULL TUBING, RT AT BEDSIDE. VSS AT THIS TIME. PT REPOSITINED AND SOFT RESTRAINTS REINFORCED. FLACC 0.
[2019-01-16] MEDS: PROPOFOL 1000 MG/100 ML PREMIX 100 ML IV PRN ×4 (02:51→21:43)
[2019-01-16 05:07] LABS: BASOPHILS # (AUTO) 0.1 K/uL (0.00-0.22); BASOPHILS % (AUTO) 0.8 % (0.0-2.0); EOSINOPHILS % (AUTO) 0.5 % (0.0-4.0); HEMATOCRIT 32.7 % (36-52); HEMOGLOBIN 11.1 g/dL (12.0-18.0); LYMPHOCYTES # (AUTO) 0.8 K/uL (2.0-11.5); LYMPHOCYTES % (AUTO) 10.6 % (20.5-51.1); MEAN CORPUSCULAR HEMOGLOBIN 33 pg (27-31); MEAN CORPUSCULAR HGB CONC 34 g/dL (33-37); MEAN CORPUSCULAR VOLUME 96.9 fL (80-94); MONOCYTES # (AUTO) 0.4 K/uL (0.8-1.0); NEUTROPHILS # (AUTO) 5.9 K/uL (1.8-7.7); NEUTROPHILS % (AUTO) 82.1 % (42.2-75.2); PLATELET COUNT (AUTO) 124 K/uL (140-450); RED BLOOD CELL COUNT(AUTO) 3.37 MIL/uL (4.20-6.10); WHITE BLOOD COUNT (AUTO) 7.2 K/uL (4.8-10.8)
--- NOTE | 2019-01-16 05:08 | NUR ---
VENT CHECK. PT ASLEEP. NO SOB OR DISTRESS NOTED.
--- NOTE | 2019-01-16 05:44 | NUR ---
AM CARES COMPLETED, NO BM, ORAL CARE AND PATEL CATH CARE COMPLETED. PT TOLERATED FAIRLY WELL MAX ASSIST X2 FOR REPOSITIONING. ON 4MCG/MIN LEVOPHED AND 15MCG/MIN PROPOFOL AT THIS TIME. BP = 117/56, HR 84, SATING 99%, RR=16.
[2019-01-16 06:39] LABS: POTASSIUM 2.7 mmol/L (3.5-5.1)
[2019-01-16 06:40] LABS: CARBON DIOXIDE 31.7 mmol/L (21-32); CREATININE 1.1 mg/dL (0.7-1.3); TOTAL BILIRUBIN 0.8 mg/dL (0.0-1.0)
[2019-01-16 06:41] LABS: ALBUMIN 2.7 g/dL (3.4-5.0)
--- NOTE | 2019-01-16 06:58 | NUR ---
PAGED DR. MARROQUIN TO UPDATED ON LOW POTASSIUM, WAITING FOR CALL BACK.
[2019-01-16] MEDS: BLOOD GLUCOSE MONITORING 1 DEV DEV FS SCH ×4 (07:25→21:54)
--- NOTE | 2019-01-16 07:32 | NUR ---
RECEIVED REPORT FROM TANNER ROTARY DRUM CONTINUOUS PROCESS RN. PT ON SEDATED. RASS -2. SKIN DRY AND WARM TO TOUCH. DRY WEIGHT 132 KG. ON ETT TO VENT. AC/VC FIO2 285 TV 550 RR 16 PEEP 5. OG-TUBE IN PLACE. POSITIVE PLACEMENT. JEVITY 1.2 RUNNING AT 30 ML/HR. RESIDUAL 0. LUNGS CLEAR. SALINE LOCK ON RIGHT HAND 22G. INTACT LINE. CLAIRE PICC LINE DOUBLE LUMEN NOTED INTACT. PROPOFOL INFUSING AT 20 MCG/KG/MIN, D5%NS INFUSING AT 90 ML/HR. ABDOMEN SOFT ROUND AND NON-TENDER. ACTIVE BOWEL SOUND. F/C IN PLACE DRAINING DARK BARBARA URINE VIA GRAVITY. SKIN TEAR NOTED ON RIGHT KNEE, REDNESS NOTED ON LEFT KNEE. VITILIGO ALL OVER THE BODY. KEPT HOB ELEVATED. BED IN LOW POSITIONED, LOCKED. WILL CONTINUE TO MONITOR.
--- NOTE | 2019-01-16 07:32 | NUR ---
REPORT GIVEN TO MORNING SHIFT RNSUSAN.
--- NOTE | 2019-01-16 08:11 | NUR ---
MORNING CARE PROVIDED NEEDED.
[2019-01-16] MEDS: metFORMIN 500 MG TAB PO SCH (08:53)
[2019-01-16] MEDS: DEXT 5% /NACL 0.9% 1,000 ML IV SCH ×2 (08:54→19:03)
[2019-01-16] MEDS: PANTOPRAZOLE 40 MG INJ VIAL IVP SCH (08:55)
[2019-01-16] MEDS: FUROSEMIDE 40 MG TAB PO SCH (08:55)
[2019-01-16] MEDS: TAMSULOSIN 0.4 MG CAP PO SCH (08:55)
[2019-01-16] MEDS: CEPHALEXIN 500 MG CAP PO SCH ×4 (08:56→20:33)
[2019-01-16] MEDS: ALLOPURINOL 300 MG TAB PO SCH (08:56)
--- NOTE | 2019-01-16 09:03 | NUR ---
ABG WAS ATTEMPTED TWICE BY BOTH RT STEPHENSON AND RT CAMPOS UNABLE TO OBTAIN AT THIS TIME HARRIS DAVIS AT BEDSIDE WILL TRY LATER
[2019-01-16] MEDS: LEVOTHYROXINE SODIUM 100 MCG VIAL IV SCH (09:29)
[2019-01-16] MEDS ORDERED: POTASSIUM CHLORIDE 20% 40 MEQ/15 ML UDC PO SCH (09:30)
[2019-01-16] MEDS: KCL 20 MEQ/WATER INJ PREMIX 100 ML IV SCH ×2 (10:11→12:21)
--- NOTE | 2019-01-16 10:39 | NUR ---
DR. MACHUCA AWARE OF ABG RESULT. RT AWARE.
--- NOTE | 2019-01-16 11:38 | NUR ---
CONTINUE ON SEDATION. RASS -2. VSS. NO SOB OR CUTE RESPIRATORY DISTRESS NOTED. AFEBRILE. TOLERATING FEEDING. HOB 30 DEGREE.+CIRCULATION, ON BOTH WRIST, NO INJURY NOTED. WILL CONTINUE TO MONITOR.
--- NOTE | 2019-01-16 12:11 | NUR ---
PT EVALUATED BY DR. MACHUCA. UPDATED PT CONDITION. DOCTOR EXPLAINED PT CONDITION TO THE FAMILY. WILL CARRY OUT ORDER.
[2019-01-16] MEDS: HYDROCORTISONE NA SUCC 100 MG/2 ML VIAL IV SCH ×2 (13:18→20:33)
--- NOTE | 2019-01-16 13:34 | NUR ---
RECEIVED CALL FROM CT SPOKE TO JENNI. SAID OUR CT IS DOWN AT THIS TIME, WILL BE FIXED BY TONIGHT OR TOMORROW. DR. BOLIVAR AWARE. Addendum: 01/16/19 at 1336 by Carolyn Suggs RN WRONG PT CHARTING
--- NOTE | 2019-01-16 14:15 | NUR ---
CONTINUE ON PROPOFOL DRIP AT THE SAME RATE. CONTINUE ON LEVOPHED DRIP AT 4 MCG/MIN. VSS. AFEBRILE. NO SOB OR ACUTE RESPIRATORY DISTRESS NOTED. DR. GOMES IN TO SEE PT. UPDATED PT CONDITION. FAMILY AT THE BEDSIDE. DOCTOR AT THE BEDSIDE EVALUATING PT.
--- NOTE | 2019-01-16 14:35 | NUR ---
01/16/19 RD FOLLOW UP COMPLETED PLEASE REFER TO NUTRITION ASSESSMENT UNDER CARE ACTIVITY FOR ESTIMATED NUTRITIONAL NEEDS. 1. CONTINUE JEVITY AT 55 ML/HR WITH PROSOURCE TID -THIS WILL PROVIDE 1320 ML OF VOLUME, TOTAL OF 1764 KCAL AND 118 GM OF PROTEIN WHICH MEETS 100% OF ESTIMATED NEEDS 2. CONTINUE FREE WATER FLUSH [address] TO FOLLOW-UP 2-3 DAYS, HIGH RISK BENJAMIN HOOKS RD
[2019-01-16] MEDS: NOREPINEPHRINE 8 MG in DEXTROSE 5% 250 ML IV PRN (15:03)
--- NOTE | 2019-01-16 15:40 | NUR ---
CONTINUE ON SEDATION. RASS -2. IV SITE INTACT. TOLERATING FEEDING. RESIDUAL 0. NO CHANGE IN CONDITION. HOB ELEVATED. BED IN LOW POSITION LOCKED. WILL CONTINUE TO MONITOR.
--- NOTE | 2019-01-16 16:45 | NUR ---
TOLERATING FEEDING. RESIDUAL 0. HOB ELEVATED.
[2019-01-16] MEDS: INSULIN LISPRO SLIDING SCALE 100 UNITS/ML VIAL SUBQ PRN ×2 (17:17→21:58)
--- NOTE | 2019-01-16 17:31 | NUR ---
ADIMINISTERED MEDICINE. TOLERATING WELL. VSS. NO CHANGE IN LOC. WILL CONTINUE TO MONITOR.
--- NOTE | 2019-01-16 18:46 | NUR ---
PT REMAIN AFEBRILE THROUGHOUT THE SHIFT. NO SOB OR ACUTE RESPIRATORY DISTRESS NOTED. CONTINUE ON PROPOFOL DRIP AT 20 MCG/KG/MIN. D5% NS AT 90 ML/HR. IV SITES INTACT. VSS. NO CHANGE IN CONDITION. FLACC 0. TOLERATING FEEDING. CONTINUE TO MONITOR.
[2019-01-16] MEDS: ALBUTEROL 0.083% 2.5 MG/3 ML NEBU INH PRN (18:55)
--- NOTE | 2019-01-16 19:13 | NUR ---
REPORT GIVEN TO CRANE RIGGER RN FOR CONTINUITY OF CARE.
--- NOTE | 2019-01-16 19:37 | NUR ---
RECEIVED BEDSIDE REPORT FROM MORNING SHIFT RNSUSAN. VSS, BP 108/63, HR=95, SATING 98%, RR=16, TEMP 97.0. AFIB ON YOUTH CARE PROFESSIONAL. NONVERBAL, ETT TO VENT, LUNG SOUNDS CLEAR ON BILATERAL UPPER/LOWER LOBES. ACVC MODE FIO2 =28%, TC=198, RR=16, FLOW=40L/MIN, PEEP=5. BOWEL SOUND ACTIVE, NO RESIDUAL, OGT TO FEED AT 50CC/HR JEVITY 1.2. PATEL CATH IN PLACE. URINE IS LIGHT BARBARA/YELLOW. CLAIRE PICC LINE, INFUSING PROPOFOL AT 20MCG/MIN, AND D5NS AT 90CC/HR. PT HAS RIGHT WRIST 22 GAUGE PIV. HOB ELEVATED ABOVE 30 DEG, VAP ORAL CARE PROVIDED. STANDARD PRECAUTIONS. ON BILATERAL SOFT WRIST RESTRAINTS. SKIN TEAR ON RIGHT KNEE COVERED WITH VERSATEL PATCH, AND SKIN TEAR TO RIGHT ELBOW, SCABBED OPEN TO AIR. APPEAR TO HAVE VITILIGO/HYPOPIGMENTED PATCHY SKIN. Addendum: 01/17/19 at 0630 by Thuy Mejía RN DRY WEIGHT OF 132KG USED FOR PROPOFOL DRIP.
[2019-01-16] MEDS: SIMVASTATIN 40 MG TAB PO SCH (20:33)
[2019-01-16] MEDS: RIVAROXABAN 10 MG TAB PO SCH (20:34)
--- NOTE | 2019-01-16 21:24 | NUR ---
FAMILY AT BEDSIDE TO SEE PATIENT.
--- NOTE | 2019-01-16 23:50 | NUR ---
AM CARES PROVIDED, NO BM AT THIS TIME. PATEL CATH KIT AND VAP ORAL CARE PROVIDED. RASS -2 MAINTAINED WITH PROPOFOL CONTINUED AT 20MCG/KIG/MIN PT AROUSES TO VOICE/TOUCH. REPOSITIONED AND PT TOELRATED WELL. PT CURRENTLY AT GOAL FOR TUBE FEEDING 55CC/HR. NO RESIDUAL NOTED. HOB ELEVATED ABOVE 30 DEG.
[2019-01-17] VITALS (60 sets, daily range): BP systolic 82–160; BP diastolic 40–88
--- NOTE | 2019-01-17 01:21 | NUR ---
RT RUIZ IN TO SEE PATIENT.
[2019-01-17] MEDS: PROPOFOL 1000 MG/100 ML PREMIX 100 ML IV PRN ×2 (02:56→07:16)
--- NOTE | 2019-01-17 04:55 | NUR ---
CHELSEA FROM RADIOLOGY AT BEDSIDE TO PERFORM CHEST XRAY, RAY FROM LAB AT BEDSIDE TO COLLECT BLOOD SAMPLE. SAMPLE COLLECTED FROM RNLENNOX, VIA CLAIRE PICC LINE, WASTED FIRST 10ML , JELENA SAMPLE, THEN SALINE FLUSHED. ADEQUATE BLOOD RETURN WAS RECEIVED.
[2019-01-17] MEDS: HYDROCORTISONE NA SUCC 100 MG/2 ML VIAL IV SCH ×3 (05:08→20:16)
--- NOTE | 2019-01-17 05:24 | NUR ---
URINE WAS MALODOROUS, OUTPUT OF 350ML, DARK BARBARA.
[2019-01-17 05:38] LABS: ALBUMIN 2.9 g/dL (3.4-5.0); ANION GAP 9.3 (8-16); CARBON DIOXIDE 30.8 mmol/L (21-32); CREATININE 1.2 mg/dL (0.7-1.3); POTASSIUM 3.1 mmol/L (3.5-5.1); TOTAL BILIRUBIN 0.6 mg/dL (0.0-1.0)
[2019-01-17 05:48] LABS: HEMATOCRIT 32.9 % (36-52); HEMOGLOBIN 11.1 g/dL (12.0-18.0); MEAN CORPUSCULAR HEMOGLOBIN 33 pg (27-31); MEAN CORPUSCULAR HGB CONC 34 g/dL (33-37); MEAN CORPUSCULAR VOLUME 97.5 fL (80-94); PLATELET COUNT (AUTO) 122 K/uL (140-450); RED BLOOD CELL COUNT(AUTO) 3.38 MIL/uL (4.20-6.10); RED CELL DISTRIBUTION WIDTH 16.5 % (11.6-13.7); WHITE BLOOD COUNT (AUTO) 8.1 K/uL (4.8-10.8)
[2019-01-17] MEDS: DEXT 5% /NACL 0.9% 1,000 ML IV SCH (06:10)
--- NOTE | 2019-01-17 06:40 | NUR ---
REC'D PT ON CARESCAPE VENT SETTINGS AC 16 VT 550 PEEP 5 FIO2 28% ALARMS ON AND AUDIBLE AMBU BAG AT HOB AND VENT IS PLUGGED INTO RED OUTLET, NO HHN NEEDED AT THIS TIME B\S CLEAR BILATERALLY, SXN PT MODERATE AMT OF YELLOW SECRETIONS, PT IS ORALLY INTUBATED WITH 8.0 ET TUBE AT 24 CM LIP AND SKIN INTEGRITY IS INTACT AND PT IS SLEEPING
--- NOTE | 2019-01-17 07:35 | NUR ---
DOCUMENTED ON WRONG PATIENT, PROPOFOL WAS NOT STOPPED FOR PT MARCIE BAKER AT THIS TIME. PLEASE DISREGARD ERROR MADE ON IV SPREADSHEET.
[2019-01-17] MEDS: BLOOD GLUCOSE MONITORING 1 DEV DEV FS SCH ×4 (07:37→20:22)
--- NOTE | 2019-01-17 07:39 | NUR ---
GAVE BEDSIDE REPORT TO INA IGLESIAS.
--- NOTE | 2019-01-17 07:40 | NUR ---
OBTAINED REPORT FROM NUTRITION AND DIETETICS INSTRUCTOR NURSE AT BEDSIDE, PT IS SEDATED, RASS -4, FLACC 0, VSS, NO S/S OF DISTRESS, ETT TO VENT WITH AC 16, TV 550, FIO2 28% PEEP 5, CLEAR LUNG SOUND SUBHA. O2 SAT AT 94 %, A-FIB ON BUTTER PRINTER, SOFT ABDOMEN WITH ACTIVE BOWEL SOUNDS, OGT IN PLACE, POSITIVE PLACEMENT, FEEDING WITH JAVITY AT 60ML/HR, 0 RESIDUALS, PATEL CATHETER IN PLACE WITH CLEAR BARBARA URINE VIA GRAVITY, SKIN IS WARM AND DRY TO TOUCH, SKIN TEAR TO RIGHT KNEE NOTED, PICC LINE TO LEFT UPPER ARM, SANTO, PATENT, RUNNING PROPOFOL AT 30 MG/HR, DRY WEIGHT USED 132KG, D5 NS AT 90 ML/HR. SOFT RESTRAIN TO SUBHA WRIST FOR SAFETY, HOB ELEVATED TO 30 DEGREES, SAFETY MEASURE CHECKED, ORAL CARE PROVIDED, POSITION CHANGED FOR COMFORT, WILL CONTINUE TO MONITOR.
[2019-01-17 08:14] LABS: LYMPHOCYTES % (MANUAL) 8 % (20-46); MONOCYTES % (MANUAL) 4 % (5-12)
[2019-01-17] MEDS: PANTOPRAZOLE 40 MG INJ VIAL IVP SCH (08:28)
[2019-01-17] MEDS: TAMSULOSIN 0.4 MG CAP PO SCH (08:28)
[2019-01-17] MEDS: ALLOPURINOL 300 MG TAB PO SCH (08:28)
[2019-01-17] MEDS: CEPHALEXIN 500 MG CAP PO SCH ×4 (08:29→20:16)
[2019-01-17] MEDS: FUROSEMIDE 40 MG TAB PO SCH (08:29)
[2019-01-17] MEDS: INSULIN LISPRO SLIDING SCALE 100 UNITS/ML VIAL SUBQ PRN (08:59)
[2019-01-17] MEDS ORDERED: LEVOTHYROXINE SODIUM 100 MCG VIAL IV SCH (09:00)
--- NOTE | 2019-01-17 09:00 | NUR ---
SCHEDULED MEDICATION GIVEN, NO S/S OF DISTRESS, VSS, NO ADVERSE EFFECTS NOTED.
--- NOTE | 2019-01-17 10:00 | NUR ---
NO S/S OF DISTRESS, VSS, FLACC 0, POSITION CHANGED FOR OFF LOAD PRESSURE.
[2019-01-17] MEDS ORDERED: KCL 20 MEQ/WATER INJ PREMIX 200 ML IV SCH (10:15)
--- NOTE | 2019-01-17 11:30 | NUR ---
DR. GOMES CAME IN TO SEE PT AT BEDSIDE, UPDATED PT'S CONDITION, WILL CONTINUE TO MONITOR.
[2019-01-17] MEDS ORDERED: LEVOTHYROXINE 0.1 MG TAB PO SCH (11:36)
[2019-01-17] MEDS ORDERED: LEVOTHYROXINE 0.1 MG TAB NG SCH (12:00)
--- NOTE | 2019-01-17 12:00 | NUR ---
DR. MACHUCA CAME IN TO SEE PT AT BEDSIDE, ORDERED TO TURN OFF THE SEDATION AND FEEDING TUBE, PUT PT ON CPAP MODE AT THIS TIME.
--- NOTE | 2019-01-17 12:15 | NUR ---
PT IS MORE AWARE AND ALERT, ABLE TO FOLLOW COMMANDS, DR. MACHUCA SPOKE TO HIM AND FAMILY MEMBERS REGARDING THE EXTUBATION PLAN, PT AND PT'S FAMILY VERBALIZED UNDERSTANDING, OFF RESTRAIN AT THIS TIME.
--- NOTE | 2019-01-17 12:56 | NUR ---
DR. MACHUCA AT BEDSIDE AT [address] PT ON CPAP 5 PS 10 FOR 2HOURS THEN DO ABG IF ABG GOOD CAN EXTUBATE PT AND PLACE PT ON BIPAP SNX PT MODERATE AMT OF YELLOW- BLOOD TINT SECRETIONS, PT IS RESTING RN INA AT BEDSIDE WITH FOR THE VENT ORDER
--- NOTE | 2019-01-17 14:00 | NUR ---
PT IS CALM, RESTING IN BED, RT AT BEDSIDE, NO S/S OF DISTRESS, VSS, DENIED PAIN, POSITION CHANGED FOR OFF LOAD PRESSURE.
--- NOTE | 2019-01-17 14:09 | NUR ---
ABG DRAWN ON LR WITHOUT INCIDENT AND DR. MACHUCA CALLED AT 1432 READ ABG RESULTS AND WAS ORDERED TO EXTUBATE PT AND PLACE ON O2 TO KEEP O2 SAT ABOVE 90% PT WAS EXTUBATED AT 1515 AND PLACED ON 7L OXYMIZER AND BIPAP AT BEDSIDE HARRIS BUCKLEY AT BEDSIDE.
[2019-01-17] MEDS ORDERED: RACEPINEPHRINE 2.25% 13.5 MG/0.5 ML NEBU INH ONE (14:40)
[2019-01-17] MEDS ORDERED: RACEPINEPHRINE 2.25% 13.5 MG/0.5 ML NEBU INH PRN (14:45)
--- NOTE | 2019-01-17 15:15 | NUR ---
PT IS EXTUBATED BY RT, O2 ON 7L VIA OXYMIZER, O2 SAT 95%, HR 108, BP 153/78, RR 20, DENIES PAIN, PT TOLERATED WELL, OGT STILL IN PLACE, EDUCATION PROVIDED FOR POST EXTUBATION, PT VERBALIZED UNDERSTANDING.
--- NOTE | 2019-01-17 16:00 | NUR ---
PT IS LAUGHING AND TALKING TO PT'S FAMILY MEMBERS, VSS, ON OXYMIZER, O2 SAT AT 95%, PM CARE AND F/C PROVIDED, POSITION CHANGED FOR OFF LOAD PRESSURE.
--- NOTE | 2019-01-17 18:00 | NUR ---
PT IS RESTING IN BED, WATCHING TV, NO S/S OF DISTRESS, VSS, DENIES PAIN, POSITION CHANGED FOR OFF LOAD PRESSURE, ABLE TO SELF SUCTION.
--- NOTE | 2019-01-17 19:14 | NUR ---
REPORT GIVEN TO CUFF SETTER LOCKSTITCH NURSE AT BEDSIDE FOR CONTINUE OF CARE, PT IS IN STABLE CONDITION AT THIS TIME.
--- NOTE | 2019-01-17 19:30 | NUR ---
REPORT RECEIVED FROM DAY SHIFT NURSEINA RN FOR CONTINUITY OF CARE. FULL CODE. NKDA. INITIAL VITAL SIGNS: HR 107, BP 135/81, RR 24, /SPO2 100% ON OXYMIZER @ 7LPM, TEMP 97.4 TEMPORAL ARTERY. PT A&OX4. PT REPORTS NO PAIN OR DISCOMFORT. PT'S PUPILS, LEFT AND RIGHT, 3MM PERRLA, TRACK APPROPRIATELY. EYE LIDS APPEAR SWOLLEN. AFIB ON MONITOR. CLAIRE DOUBLE LUMEN PICC. PALPABLE PULSES (RADIAL, POSTERIOR TIBIAL, DORSALIS PEDIS). PATENT AIRWAY. EQUAL BILATERAL BREATH SOUNDS. CHEST EXPANDS SYMMETRICALLY. BOWEL SOUNDS HYPOACTIVE. OGT IN PLACE, NO TUBE FEEDING RUNNING AT THIS TIME. PATEL IN PLACE DRAINING LIGHT BARBARA URINE. SKIN NON-INTACT (HEALING SKIN TEAR, RIGHT KNEE). SAFETY PRECAUTIONS IN PLACE. BED IN LOWEST POSITION.
--- NOTE | 2019-01-17 20:03 | NUR ---
PAGED DR. TORREZ ABOUT PT'S DIET ORDER AND NUTRITION STATUS.
--- NOTE | 2019-01-17 20:04 | NUR ---
RECEIVED CALL BACK FROM DR. TORREZ. DR. TORREZ CONFIRMS THAT HE WANTS PATIENT TO HAVE NO IV FLUIDS AND NO TUBE FEEDING RUNNING AT THIS TIME.
[2019-01-17] MEDS: SIMVASTATIN 40 MG TAB PO SCH (20:17)
[2019-01-17] MEDS: RIVAROXABAN 10 MG TAB PO SCH (20:18)
--- NOTE | 2019-01-17 21:15 | NUR ---
DR. AVERY AT BEDSIDE EVALUATING PATIENT.
--- NOTE | 2019-01-17 22:00 | NUR ---
DR. FARELY AT BEDSIDE COMPLETING INFORMED CONSENT FOR CTA CHEST. Addendum: 01/17/19 at 2257 by James Davenport RN WRONG PATIENT
[2019-01-17] MEDS: ALBUTEROL 0.083% 2.5 MG/3 ML NEBU INH PRN (22:10)
--- NOTE | 2019-01-17 22:25 | NUR ---
RECEIVED PATIENT ON 7L OXYMIZER, PULSE OX SAT 97%. BREATH SOUNDS DIMINISHED WITH EXPIRATORY WHEEZING. PRN BREATHING TREATMENT ADMINISTERED. PATIENT TOLERATED TREATMENT WELL, NO ADVERSE SIDE EFFECTS. NO RESPIRATORY DISTRESS NOTED AT THIS TIME. OXYGEN TITRATED TO MAINTAIN SATURATION OF >90% PER ORDERED. ON 6L OXYMIZER, PULSE OX SAT 95%. WILL CONTINUE TO MONITOR.
--- NOTE | 2019-01-17 22:25 | NUR ---
RT AT BEDSIDE CONDUCTING BREATHING TREATMENT. LOWERED OXIMIZER TO 6LPM.
--- NOTE | 2019-01-17 23:45 | NUR ---
PT PROVIDED PATEL CARE, SPONGE BATH, CLEAN LINENS AND GOWN.
[2019-01-18] VITALS (11 sets, daily range): BP systolic 115–156; BP diastolic 55–108
--- NOTE | 2019-01-18 01:05 | NUR ---
TITRATED OXYGEN TO 5L, PULSE OX SAT 98%. RN NOTIFIED. WILL CONTINUE TO MONITOR.
--- NOTE | 2019-01-18 02:00 | NUR ---
PT HAD A BM. PT CLEANED AND REPOSITIONED.
--- NOTE | 2019-01-18 03:36 | NUR ---
PT RESTING COMFORTABLY. PT SHOWS NO SIGNS OF DISTRESS OR PAIN. VITAL SIGNS STABLE.
--- NOTE | 2019-01-18 04:25 | NUR ---
PT PULLED OGT AT THIS TIME. SALEM SUMP TUBE INTACT. ORAL CARE PROVIDED TO PT. ST EVAL WAS ALREADY ORDERED AND WAITING TO BE DONE. WILL FOLLOW UP.
[2019-01-18] MEDS: HYDROCORTISONE NA SUCC 100 MG/2 ML VIAL IV SCH ×2 (04:59→12:31)
[2019-01-18] MEDS ORDERED: LEVOTHYROXINE 0.1 MG TAB NG SCH ×2 (06:30→12:00)
[2019-01-18] MEDS: BLOOD GLUCOSE MONITORING 1 DEV DEV FS SCH ×4 (06:43→20:59)
--- NOTE | 2019-01-18 07:24 | NUR ---
REPORT GIVEN TO MORNING RN, OSWALDO, FOR CONTINUITY OF CARE. VS STABLE AT THIS TIME.
--- NOTE | 2019-01-18 07:30 | NUR ---
RECEIVED REPORT FROM CASINO FLOOR PERSON PT. SLEEPING WITH OXIMIZER AT 4L/MIN. SAT 96% SKIN DRY AND WARM TO TOUCH.IV FLUID AT CLAIRE PICC LINE. THE SITE IS DRY AND INTACT PT. IS NPO EXCEPT MED, ABDOMEN LARGE SOFT BOWEL SOUND IS ACTIVE, SMALL SKIN ABRASION ON RT KNEE. PATEL CATH DRAIN CLEAR BARBARA URINE.
--- NOTE | 2019-01-18 09:30 | NUR ---
AWAKE FOLLOW COMMAND. ABLE TO SWALLOW HIS MEDICATION PILL WITH APPLE SAUCE. VISIT BY HIS BROTHER AT BED SIDE.
[2019-01-18] MEDS: PANTOPRAZOLE 40 MG INJ VIAL IVP SCH (09:56)
[2019-01-18] MEDS: TAMSULOSIN 0.4 MG CAP PO SCH (10:32)
[2019-01-18] MEDS: CEPHALEXIN 500 MG CAP PO SCH ×4 (10:32→20:58)
[2019-01-18] MEDS: ALLOPURINOL 300 MG TAB PO SCH (10:32)
[2019-01-18] MEDS: FUROSEMIDE 40 MG TAB PO SCH (10:33)
--- NOTE | 2019-01-18 11:50 | NUR ---
AWAKE ALERT VISIT BY FAMILY AT BEDSIDE. DENIED PAIN.
--- NOTE | 2019-01-18 12:00 | NUR ---
RECEIVED PT FROM HARRIS CHACON AT BEDSIDE, PT IS AAOX4, ABLE TO FOLLOW COMMANDS AND MAKE NEEDS KNOWN, VSS, DENIES PAIN, NO S/S OF DISTRESS, CLEAR LUNG SOUNDS SUBHA, ON O2 AT 4L VIA OXYMIZER, O2 SAT 98%, DENIES CHEST PAIN, A-FIB ON DRILLER'S OFFSIDER, LARGE SOFT ABDOMEN WITH ACTIVE BOWEL SOUNDS, ON NPO EXCEPT MEDS AT THIS TIME, PTAEL CATHETER IN PLACE WITH BARBARA CLEAR URINE VIA GRAVITY, ABLE TO MOVE ALL EXTREMITIES, SKIN IS WARM AND DRY TO TOUCH, PICC LINE TO LEFT UPPER ARM, PATENT AND SL. HOB ELEVATED TO 30 DEGREES, SAFETY MEASURES IN PLACE, CALL LIGHT WITHIN REACH, WILL CONTINUE TO MONITOR.
--- NOTE | 2019-01-18 13:40 | NUR ---
DR. GOMES CAME IN TO SEE PT AT BEDSIDE, UPDATED PT'S CONDITION, WILL FOLLOW UP WITH NEW ORDERS.
[2019-01-18] MEDS ORDERED: predniSONE 10 MG TAB PO SCH (14:14)
[2019-01-18 14:43] LABS: BASOPHILS % (AUTO) 0.1 % (0.0-2.0); HEMATOCRIT 32.6 % (36-52); LYMPHOCYTES # (AUTO) 0.5 K/uL (2.0-11.5); LYMPHOCYTES % (AUTO) 5.8 % (20.5-51.1); MEAN CORPUSCULAR HEMOGLOBIN 33 pg (27-31); MEAN CORPUSCULAR HGB CONC 34 g/dL (33-37); MEAN CORPUSCULAR VOLUME 98.5 fL (80-94); MONOCYTES # (AUTO) 0.4 K/uL (0.8-1.0); MONOCYTES % (AUTO) 4.7 % (1.7-9.3); NEUTROPHILS # (AUTO) 7.5 K/uL (1.8-7.7); NEUTROPHILS % (AUTO) 89.4 % (42.2-75.2); PLATELET COUNT (AUTO) 131 K/uL (140-450); RED BLOOD CELL COUNT(AUTO) 3.31 MIL/uL (4.20-6.10); RED CELL DISTRIBUTION WIDTH 16.6 % (11.6-13.7); WHITE BLOOD COUNT (AUTO) 8.4 K/uL (4.8-10.8)
[2019-01-18 14:56] LABS: ANION GAP 7.3 (8-16); CARBON DIOXIDE 35.3 mmol/L (21-32); POTASSIUM 3.6 mmol/L (3.5-5.1)
--- NOTE | 2019-01-18 15:14 | NUR ---
S.T. BEDSIDE SWALLOW EVAL COMPLETED See report for details. Pt presents w/ mild-moderate oropharyngeal dysphagia due to prolonged mastication and some labial spillage of solids and thin liquids and coughing observed after swallow of thin liquids. Recommend: 1) Downgrade diet textures to mechanical soft chopped with nectar thick liquids. Straws ok 2) P.O. meds as tolerated. 3) Advance diet slowly as tolerated. No further swallow tx indicated at this time. DC to [facility]. D/w pt and HARRIS Villegas results/recommendations. Time [id number]
--- NOTE | 2019-01-18 15:38 | NUR ---
SWITCHED PATIENT TO 2L NASAL CANULA. PATIENT TOLERATING. NURSE IS AWARE OF CHANGE
--- NOTE | 2019-01-18 16:00 | NUR ---
PT IS ASLEEP IN BED, ACCU CHECK WITH 288MG/DL, INSULIN GIVEN, NO S/S OF DISTRESS, VSS, DENIES PAIN.
[2019-01-18] MEDS: INSULIN LISPRO SLIDING SCALE 100 UNITS/ML VIAL SUBQ PRN ×2 (16:44→21:02)
--- NOTE | 2019-01-18 18:29 | NUR ---
RECEIVED BEDSIDE REPORT FROM TILE PICKER JUDI. PT STABLE, AWAKE, ALERT AND ORIENTED X4. NO SIGNS OF DISTRESS NOTED. DENIES PAIN OR SOB. ON 2L O2 VIA NC. NO REDNESS, SWELLING, OR INFLAMMATION NOTED ON IV SITE. FAMILY AT THE BEDSIDE. CALL ARANA WITHIN REACH. BED IN LOWEST POSITION. SAFETY MEASURES IN PLACE. PLAN OF CARE REVIEWED.
--- NOTE | 2019-01-18 18:30 | NUR ---
PT TRANSFERRED TO TELEMETRY ROOM 123A VIA BED, ALL BELONGING GOES WITH PT, PT'S FAMILY MEMBERS AT BEDSIDE, REPORT GIVEN TO HARRIS BARROW AT BEDSIDE, PT IS IN STABLE CONDITION AT THIS TIME.
--- NOTE | 2019-01-18 19:20 | NUR ---
ENDORSED PT TO HARRIS BRANDON FOR CONTINUITY OF CARE. PT STABLE.
--- NOTE | 2019-01-18 19:21 | NUR ---
REPORT RECEIVED FROM AM NURSE, BRIANDA BARROW. PT SITTING UP IN BED, AWAKE, ALERT AND ORIENTED. PICC LINE IN LEFT UPPER ARM INTACT. PATEL CATH IN PLACE. PT ON 2L O2 N.C. SAFETY PRECAUTIONS IN PLACE, BE IN LOW POSITION. CALL LIGHT WITH IN REACH. ALL NEEDS MEET AT THIS TIME. WILL CONTINUE TO MONITOR.
[2019-01-18] MEDS: SIMVASTATIN 40 MG TAB PO SCH (20:57)
--- NOTE | 2019-01-18 20:57 | NUR ---
KEFLEX, ZOCOR AND XARELTO GIVEN PO. WELL TOLERATED. Addendum: 01/18/19 at 2302 by Khushboo Hernández RN BLOOD GLUCOSE 154, 2UNITS HUMALOG GIVEN SQ.
[2019-01-18] MEDS: RIVAROXABAN 10 MG TAB PO SCH (21:01)
--- NOTE | 2019-01-18 22:30 | NUR ---
PT AMBULATED WITH ASSIST TO THE BATHROOM. PHOTORESIST CONTACT PRINTER AWARE OF PT IN RESTROOM.
[2019-01-18] MEDS ORDERED: ZOLPIDEM 5 MG TAB PO PRN (23:20)
--- NOTE | 2019-01-18 23:42 | NUR ---
AMBIEN GIVEN PO FOR SLEEP. PT TOLERATED WELL.
[2019-01-19 00:05] VITALS: BP 109/69
[2019-01-19] MEDS: ACETAMINOPHEN 325 MG TAB PO PRN ×2 (00:24→08:34)
--- NOTE | 2019-01-19 00:24 | NUR ---
TYLENOL GIVEN FOR PAIN AT PATEL SITE.
--- NOTE | 2019-01-19 01:59 | NUR ---
PT SLEEPING, NO VISIBLE SIGNS OF DISTRESS. RESPIRATIONS EVEN, UNLABORED AND WNL.
[2019-01-19] MEDS ORDERED: KETOROLAC 30 MG/ML VIAL IVP PRN (03:05)
--- NOTE | 2019-01-19 03:12 | NUR ---
TORADOL GIVEN FOR PATEL PAIN. TOLERATED WELL.
[2019-01-19 04:11] VITALS: BP 100/52
--- NOTE | 2019-01-19 05:51 | NUR ---
INFORMED DR. MACHUCA THAT PT HAD A SHORT RUN OF VTACH. PTS HR IS PERIODICALLY DROPPING TO THE 40S WITH NO S/S. PTS 1999 HR 107, HR 112 AND 0400 HR 67. Addendum: 01/19/19 at 0657 by Krishna Novoa RN NO CHANGE IN ORDERS.
[2019-01-19] MEDS: BLOOD GLUCOSE MONITORING 1 DEV DEV FS SCH ×3 (06:40→16:51)
--- NOTE | 2019-01-19 06:40 | NUR ---
BS 98. NO INSULIN COVERAGE NEEDED.
[2019-01-19 07:08] LABS: ANION GAP 9.6 (8-16); CARBON DIOXIDE 34.1 mmol/L (21-32); POTASSIUM 3.7 mmol/L (3.5-5.1); TOTAL BILIRUBIN 0.5 mg/dL (0.0-1.0)
--- NOTE | 2019-01-19 07:27 | NUR ---
REPORT GIVEN TO AM NURSE AT BEDSIDE. PT IN STABLE CONDITION.
--- NOTE | 2019-01-19 07:28 | NUR ---
RECEIVED BEDSIDE REPORT FROM HARRIS BRANDON. PATIENT ON TELE MONITOR AND STANDARD PRECAUTIONS IN PLACE. PATIENT AAOX4, COMMUNICATES APPROPRIATELY AND ON ROOM AIR, NO DISTRESS NOTED. R KNEE SKIN TEAR. PICC LINE ON CLAIRE DOUBLE LUMEN, PATENT ASYMPTOMATIC AND INTACT, SALINE LOCK. PATIENT AMBULATES WITH ASSIST AND CONTINENT. PATIENT WITH PATEL CATHETER IN PLACE. FALL RISK PROTOCOL IN PLACE. BED IN LOW POSITION, CALL LIGHT WITHIN REACH, SIDE RAILS X2 UP Addendum: 01/19/19 at 0943 by Sabrina Cohen RN PATEL CATHETER INSERTED ON 01/14/19
[2019-01-19 08:00] VITALS: BP 112/66
[2019-01-19] MEDS: FUROSEMIDE 40 MG TAB PO SCH (08:36)
[2019-01-19] MEDS: TAMSULOSIN 0.4 MG CAP PO SCH (08:36)
[2019-01-19] MEDS: ALLOPURINOL 300 MG TAB PO SCH (08:36)
[2019-01-19] MEDS: PANTOPRAZOLE 40 MG INJ VIAL IVP SCH (08:36)
--- NOTE | 2019-01-19 08:45 | NUR ---
ADMINISTERED SCHEDULED MEDS. PATIENT TOLERATED WELL
[2019-01-19] MEDS: CEPHALEXIN 500 MG CAP PO SCH ×2 (08:52→13:05)
[2019-01-19] MEDS ORDERED: predniSONE 10 MG TAB PO SCH (09:00)
--- NOTE | 2019-01-19 11:20 | NUR ---
PATIENT WALKING WITH PT WITH WALKER AROUND UNIT. PATIENT STABLE
[2019-01-19 12:00] VITALS: BP 115/75
--- NOTE | 2019-01-19 12:52 | NUR ---
PATIENT EATING LUNCH, ON ROOM AIR, NO DISTRESS NOTED
--- NOTE | 2019-01-19 13:03 | NUR ---
DISCONTINUED PATEL CATHETER ORDERED
--- NOTE | 2019-01-19 15:34 | NUR ---
PATIENT SITTING ON SIDE OF BED, ON 2 L O2 NC, NO DISTRESS NOTED
[2019-01-19 16:00] VITALS: BP 110/68
--- NOTE | 2019-01-19 16:17 | NUR ---
01/19/19 RD FOLLOW UP COMPLETED PLEASE REFER TO NUTRITION ASSESSMENT UNDER CARE ACTIVITY FOR ESTIMATED NUTRITIONAL NEEDS. 1. CONTINUE CCHO 60 GM DIET TOLERATED 2. RD PROVIDED NUTRITION EDUCATION FOR LOW SODIUM AND FAT DIET. PT ACCEPTED 3. RD TO FOLLOW-UP 5-7 DAYS, LOW RISK BENJAMIN HOOKS, RD
[2019-01-19] MEDS ORDERED: POTA10TE30 PO (17:23)
[2019-01-19] MEDS ORDERED: LEVO0.2T5 PO (17:25)
[2019-01-19] MEDS ORDERED: TAMS0.4C96 PO (17:25)
[2019-01-19] MEDS ORDERED: BUS5 PO (17:31)
--- NOTE | 2019-01-19 18:15 | NUR ---
PATIENT WATCHING TV, ON ROOM AIR, NO DISTRESS NOTED
--- NOTE | 2019-01-19 19:20 | NUR ---
DISCHARGE INSTRUCTIONS PROVIDED TO PATIENT. PATIENT GIVEN HOME MEDS FROM PHARMACY, BROUGHT HOME WITH HIM. PATIENT REFUSED PNA VACCINE NOW. ALL BELONGINGS SENT HOME WITH PATIENT. DISCONTINUED PICC LINE CLAIRE. WRIST BANDS REMOVED. PICTURES TAKEN OF R ELBOW AND R KNEE SKIN TEAR. REMOVED TELE MONITOR. ADVISED PATIENT TO RETURN TO NEAREST ER IF HE EXPERIENCES SOB, FEVER, PAIN, ETC. PATIENT VERBALIZED UNDERSTANDING. ANSWERED ALL QUESTIONS AND CONCERNS
[2019-01-20] MEDS ORDERED: LEVOTHYROXINE 0.1 MG TAB PO SCH (06:30)
== END 2019-01-19 23:52 | disposition home or self-care (01) | DRG 917 ==
LOC: MED 23:26 → MTU 01-13 02:53 → MIC 01-14 17:50 → MTU 01-18 18:39
PROVIDERS: ADMIT Internal Medicine Pulmonary Disease; ATTEND Internal Medicine Pulmonary Disease
PROC: 5A1945Z Respiratory Ventilation, 24-96 Consecutive Hours (ICD-10-PCS; 2019-01-14)
PROC: 0BH17EZ Insertion of Endotracheal Airway into Trachea, Via Natural or Artificial Opening (ICD-10-PCS; 2019-01-14)
PROC: 5A09357 Assistance with Respiratory Ventilation, Less than 24 Consecutive Hours, Continuous Positive Airway Pressure (ICD-10-PCS; 2019-01-14)
PROC: 02HV33Z Insertion of Infusion Device into Superior Vena Cava, Percutaneous Approach (ICD-10-PCS; principal; 2019-01-15)
PROC: B548ZZA Ultrasonography of Superior Vena Cava, Guidance (ICD-10-PCS; 2019-01-15)
DX: T43.591A Poisoning by other antipsychotics and neuroleptics, accidental (unintentional), initial encounter (principal); I21.A1 Myocardial infarction type 2; J96.00 Acute respiratory failure, unspecified whether with hypoxia or hypercapnia; Z68.41 Body mass index [BMI] 40.0-44.9, adult; I50.22 Chronic systolic (congestive) heart failure; E66.9 Obesity, unspecified; G47.33 Obstructive sleep apnea (adult) (pediatric); E78.5 Hyperlipidemia, unspecified; E89.0 Postprocedural hypothyroidism; I11.0 Hypertensive heart disease with heart failure; I48.2 Chronic atrial fibrillation; N40.0 Benign prostatic hyperplasia without lower urinary tract symptoms; E66.01 Morbid (severe) obesity due to excess calories; F32.9 Major depressive disorder, single episode, unspecified; F41.9 Anxiety disorder, unspecified; I95.9 Hypotension, unspecified; I48.91 Unspecified atrial fibrillation; Z60.2 Problems related to living alone; I49.5 Sick sinus syndrome; Y92.89 Other specified places as the place of occurrence of the external cause; Z79.01 Long term (current) use of anticoagulants; Z79.890 Hormone replacement therapy
CPT/HCPCS: 36415; 36600; 70450; 71045; 80048; 80053; 80305; 81001; 82803; 82948; 83605; 83735; 83880; 84100; 84436; 84439; 84443; 84484; 85025; 85610; 85730; 87040; 87081; 87086; 92610; 93005; 94003; 94640; 94660; 96360; 96372; 99285; C1751; C9113; J1650; J1720; J1815; J1885; J2060; J2270; J2704; J3480; J3490; J7030; J7042; J7060; J7512; J7613; Q0092

== ENCOUNTER 2019-01-27 10:35 | Inpatient (IN) | payer OTHER ==
[~2019-01-27] VITALS: Ht 175.3 cm; Wt 131.1 kg
[~2019-01-27 10:35] MED LIST: BUS5 PO; FURO40TA9 PO; IBUP1TAB PO; LEVO0.2T5 PO; LISI-420 PO; POTA10TE30 PO; RIVA20TA PO; SIMV40TA1 PO; TAMS0.4C96 PO; ZYL300 PO
[2019-01-27 10:46] VITALS: BP 116/94
--- NOTE | 2019-01-27 10:55 | NUR ---
PATIENT AMBULATED TO BED 3.
--- NOTE | 2019-01-27 11:08 | NUR ---
68 Y MALE BIB FAMILY C/O WORSENING DIZZINESS, ABDOMINAL DISTENSION, AND BLE SWELLING X S/P DISCHARGE FROM THE ICU ON 01/19/2019. ADDS DIZZY MORESO WHEN GETTING UP FROM SEATED POSITION. AMBULATORY WITH STEADY GAIT. NEURO INTACT. VIOLETTA EQUAL. SPEAKING IN FULL COMPLETE SENTENCES. EQUAL ARM STRENGTH. RR 38 ON RA. OXYGEN 95%. DENIES N/V/D----EXTREME CONSTIPATION. HYPOACTIVE BOWEL SOUNDS. LAST BM TODAY STRAINED. ABDOMINAL PAIN 10/10. BED IS DOWN, LOCKED, BED RAIL X 1, ERMD TO SEE PT. HX---A-FIB, CAD,THYROID RX---SEE LIST
--- NOTE | 2019-01-27 11:08 | NUR ---
JACQUIE EMT AT BEDSIDE FOR EKG
--- NOTE | 2019-01-27 11:20 | NUR ---
PT BEING TAKEN TO CT
[2019-01-27 11:54] LABS: BASOPHILS % (AUTO) 0.4 % (0.0-2.0); EOSINOPHILS # (AUTO) 0.1 K/uL (0-0.4); EOSINOPHILS % (AUTO) 1.2 % (0.0-4.0); HEMATOCRIT 32.3 % (36-52); HEMOGLOBIN 10.6 g/dL (12.0-18.0); LYMPHOCYTES # (AUTO) 0.9 K/uL (2.0-11.5); LYMPHOCYTES % (AUTO) 14.7 % (20.5-51.1); MEAN CORPUSCULAR HEMOGLOBIN 33 pg (27-31); MEAN CORPUSCULAR HGB CONC 33 g/dL (33-37); MEAN CORPUSCULAR VOLUME 99.7 fL (80-94); MONOCYTES # (AUTO) 0.8 K/uL (0.8-1.0); MONOCYTES % (AUTO) 12.3 % (1.7-9.3); NEUTROPHILS # (AUTO) 4.5 K/uL (1.8-7.7); NEUTROPHILS % (AUTO) 71.4 % (42.2-75.2); PLATELET COUNT (AUTO) 172 K/uL (140-450); RED BLOOD CELL COUNT(AUTO) 3.23 MIL/uL (4.20-6.10); RED CELL DISTRIBUTION WIDTH 16.4 % (11.6-13.7); WHITE BLOOD COUNT (AUTO) 6.4 K/uL (4.8-10.8)
--- NOTE | 2019-01-27 12:01 | NUR ---
URINE SAMPLE HANDED TO LAB
[2019-01-27 12:19] LABS: APPEARANCE,URINE CLEAR (CLEAR); BILIRUBIN,URINE NEGATIVE (NEGATIVE); BLOOD, URINE NEGATIVE (NEGATIVE); COLOR,URINE YELLOW (YELLOW); LEUKOCYTE ESTERASE ,URINE NEGATIVE (NEGATIVE); NITRITE, URINE NEGATIVE (NEGATIVE); UGLUCOSE NEGATIVE (NEGATIVE)
[2019-01-27 12:21] LABS: PROTHROMBIN TIME 9.9 secs (10.8-13.4)
[2019-01-27 12:22] LABS: ANION GAP 5.5 (8-16); CREATININE 0.9 mg/dL (0.7-1.3); POTASSIUM 3.5 mmol/L (3.5-5.1)
[2019-01-27] MEDS ORDERED: NACL 0.9% 1,000 ML IV ONE (12:25)
--- NOTE | 2019-01-27 12:25 | NUR ---
BP 84/62. DR DUNCAN NOTIFIED. PT STARTED ON NS WIDE OPEN 1000ML
[2019-01-27 12:28] LABS: ALBUMIN 3.2 g/dL (3.4-5.0); TOTAL BILIRUBIN 0.3 mg/dL (0.0-1.0)
--- NOTE | 2019-01-27 12:40 | NUR ---
XRAY AT BEDSIDE
--- NOTE | 2019-01-27 12:46 | NUR ---
NEW BP IS 108/90 DR DUNCAN NOTIFIED
--- NOTE | 2019-01-27 13:06 | NUR ---
VSS AT THIS TIME. PT ALERT AND ORIENTED. PAIN 02/19.
--- NOTE | 2019-01-27 13:55 | NUR ---
PT STATES HE IS HUNGRY, REGULAR DIET ORDERED PER DR DUNCAN
--- NOTE | 2019-01-27 14:08 | NUR ---
LUNCH AT BEDSIDE
--- NOTE | 2019-01-27 14:34 | NUR ---
PT CONTINUES TO SAT BETWEEN 91 AND 94. PT STARTED ON 2 L NC. NOW AT 97% OXYGEN
--- NOTE | 2019-01-27 14:35 | NUR ---
PT ALERT AND ORIENTED X 4. VSS AT THIS TIME. EATING LUNCH BEDSIDE. FAMILY PRESENT.
--- NOTE | 2019-01-27 15:55 | NUR ---
Patient will be admitted to care of DR. GARCIA. Admited to TELE-OBS. Will go to room 107B. Belongings list completed. Report to HARRIS HUFFMAN.
--- NOTE | 2019-01-27 15:55 | NUR ---
PT ARRIVED ON THE UNIT WITH 2 ER NURSES. PT IS AWAKE AND ORIENTED. SCOOTED FROM THE GURNEY TO THE BED. PT DENIES ANY DIZZINESS AT THIS TIME. NO PAIN. ABD DISTENDED. PER PT, HAD SMALL BM TODAY BUT "HAVEN'T REALLY HAD A GOOD BM FOR DAYS." NOTED THE BILATERAL LOWER EXTREMITY EDEMA, PITTING +1. IV ON THE L AC 20G SL. ON TELE MONITOR. V/S WITHIN NORMAL RANGE. MRSA DONE. PT RESTING COMFORTABLY. WILL CONTINUE TO MONITOR PT.
[2019-01-27 16:00] VITALS: BP 115/69
[2019-01-27] MEDS ORDERED: ALPRAZolam 0.25 MG TAB PO PRN (17:00)
[2019-01-27] MEDS ORDERED: POTASSIUM CHLORIDE 10 MEQ TABER PO ONE (17:00)
[2019-01-27] MEDS: FUROSEMIDE 40 MG/4 ML VIAL IVP SCH (18:19)
--- NOTE | 2019-01-27 18:20 | NUR ---
ADMINISTERED LASIX AND KDUR. PT TOLERATED WELL. DINNER TRAY HERE. WILL CONTINUE TO MONITOR PT.
[2019-01-27 18:45] LABS: FREE T4 (FREE THYROXINE) 0.88 ng/dL (0.76-1.46); THYROID STIMULATING HORMONE 8.49 uIU/mL (0.34-3.74)
--- NOTE | 2019-01-27 19:11 | NUR ---
ENDORSED PT TO THE STRIPPING SHOVEL OILER NURSE AT BEDSIDE. PT IS IN STABLE CONDITION.
[2019-01-27 20:00] VITALS: BP 123/76
--- NOTE | 2019-01-27 20:52 | NUR ---
ASSISTED SLIVER LAP MACHINE TENDER IN CLEANING AND REPOSITIONING PATIENT. WILL CONTINUE TO MONITOR.
[2019-01-27] MEDS ORDERED: PNEUMOCOCCAL VACCINE 23 MCG/0.5 ML VIAL IMVAC PRN (21:25)
--- NOTE | 2019-01-27 23:54 | NUR ---
PATIENT LYING DOWN IN BED SLEEPING, AROUSABLE BY VOICE. NO DISTRESS NOTED. DENIES ANY PAIN. CONDITION UNCHANGED. WILL CONTINUE TO MONITOR.
[2019-01-28] VITALS (7 sets, daily range): BP systolic 96–151; BP diastolic 55–88
--- NOTE | 2019-01-28 02:05 | NUR ---
PATIENT LYING DOWN IN BED SLEEPING, AROUSABLE BY VOICE. NO DISTRESS NOTED. DENIES ANY PAIN. DENIES ANY DIZZINESS AT THIS TIME. WILL CONTINUE TO MONITOR.
--- NOTE | 2019-01-28 05:15 | NUR ---
PATIENT LYING DOWN IN BED SLEEPING, AROUSABLE BY VOICE. CONDITION UNCHANGED. WILL CONTINUE TO MONITOR.
[2019-01-28] MEDS: LEVOTHYROXINE 0.1 MG TAB PO SCH (05:54)
--- NOTE | 2019-01-28 07:10 | NUR ---
ENDORSED PT TO PM NURSE AT THE BEDSIDE. PT IN STABLE CONDITION. Addendum: 01/28/19 at 1920 by Xenia Zeng RN WRONG TIME 1909 SHOULD BE THE TIME.
--- NOTE | 2019-01-28 07:25 | NUR ---
GAVE REPORT TO AM NURSE FOR CONTINUITY OF CARE. PATIENT IN STABLE CONDITION.
--- NOTE | 2019-01-28 07:26 | NUR ---
RECEIVED REPORT FROM PM NURSE AT BEDSIDE. PT SITTING ON THE BEDSIDE. PT IS AOX4, ABLE TO COMMUNICATE, ABLE TO MAKE HIS NEEDS KNOW. PT UNDER OBSERVATION. HAS LFT AC 20G, SALINE LOCK. PT USES URINAL AT THE BEDSIDE. INFORMED PT TO USE CALL LIGHT FOR ANY HELP. VERBALIZED UNDERSTANDING. WILL CONTINUE TO MONITOR PT.
[2019-01-28 07:35] LABS: BASOPHILS % (AUTO) 0.2 % (0.0-2.0); EOSINOPHILS # (AUTO) 0.1 K/uL (0-0.4); EOSINOPHILS % (AUTO) 1.4 % (0.0-4.0); HEMATOCRIT 30.7 % (36-52); HEMOGLOBIN 10.1 g/dL (12.0-18.0); LYMPHOCYTES # (AUTO) 0.8 K/uL (2.0-11.5); LYMPHOCYTES % (AUTO) 13.1 % (20.5-51.1); MEAN CORPUSCULAR HEMOGLOBIN 33 pg (27-31); MEAN CORPUSCULAR HGB CONC 33 g/dL (33-37); MEAN CORPUSCULAR VOLUME 100.4 fL (80-94); MONOCYTES # (AUTO) 0.5 K/uL (0.8-1.0); MONOCYTES % (AUTO) 8.4 % (1.7-9.3); NEUTROPHILS # (AUTO) 4.5 K/uL (1.8-7.7); NEUTROPHILS % (AUTO) 76.9 % (42.2-75.2); PLATELET COUNT (AUTO) 148 K/uL (140-450); RED BLOOD CELL COUNT(AUTO) 3.06 MIL/uL (4.20-6.10); RED CELL DISTRIBUTION WIDTH 16.8 % (11.6-13.7); WHITE BLOOD COUNT (AUTO) 5.8 K/uL (4.8-10.8)
[2019-01-28 08:40] LABS: ANION GAP 10.2 (8-16); CARBON DIOXIDE 34.6 mmol/L (21-32); CREATININE 0.9 mg/dL (0.7-1.3); POTASSIUM 3.8 mmol/L (3.5-5.1); TOTAL BILIRUBIN 0.3 mg/dL (0.0-1.0)
[2019-01-28] MEDS: RIVAROXABAN 10 MG TAB PO SCH (09:00)
--- NOTE | 2019-01-28 09:31 | NUR ---
ADMINISTERED MEDS TO PT ORDERED. TOLERATED WELL. PT TALKING , HAS 1+ PITTING EDEMA ON BLE. DENIES ANY DISCOMFORT OR PAIN. INFORMED PT TO USE THE URINAL AT THE BEDSIDE. PT VERBALIZED UNDERSTANDING . PT RESTING IN HIS BED COMFORTABLY. WILL CONTINUE TO MONITOR PT.
[2019-01-28] MEDS: FUROSEMIDE 40 MG/4 ML VIAL IVP SCH ×2 (09:50→17:48)
[2019-01-28] MEDS: LISINOPRIL 20 MG TAB PO SCH (09:50)
[2019-01-28] MEDS: POTASSIUM CHLORIDE 10 MEQ TABER PO SCH (09:50)
[2019-01-28] MEDS ORDERED: POTASSIUM CHLORIDE 10 MEQ TABER PO ONE (10:45)
--- NOTE | 2019-01-28 12:15 | NUR ---
CHECKED ON THE PT , SITTING ON HIS BED. VS RECORDED. PT STABLE, ABLE TO COMMUNICATE . PT EATING HIS LUNCH. INFORMED PT THAT HE WILL BE WEANED OFF THE OXYGEN , WILL MONITOR HIS O2 SAT WHILE WALKING, IF MORE THAN 88%, WILL BE ABLE TO BE DISCHARGED. PT VERBALIZED UNDERSTANDING. WILL CONTINUE TO MONITOR PT. PT ON O2 2LP , O2 SAT 98% AT THIS TIME.
--- NOTE | 2019-01-28 13:28 | NUR ---
CHECKED ON PT. SLEEPING COMFORTABLY ON HIS BED. WILL CONTINUE TO MONITOR PT.
--- NOTE | 2019-01-28 14:40 | NUR ---
ASSESSED THE PT BY TAKING OFF THE O2 , AT ROOM AIR, PT HAS O2 SAT RANGING FROM 87-92%. KEEPS FLUCTUATE. PT SITTING ON HIS BED. WILL CONTINUE TO ASSESS PT O2 SAT AND WILL CHECK WHILE AMBULATING THE PT. WILL CONTINUE TO MONITOR PT.
--- NOTE | 2019-01-28 16:45 | NUR ---
CHECKED ON THE PT. STATES HAVING DIZZINESS AT THIS TIME. PT ON RA, O2 SAT FLUCTUATES FORM 85 TO 91 % WHILE SITTING ON THE BEDSIDE. PT WAS WALKED AROUND THE MST UNIT 2X, O2 SAT RANGES FROM 89-93%. CHECKED PT O2 SAT WHILE SITTING, O2 SAT UNSTABLE, VARIES FROM 87-91%. WITH O2 2LPM, PT O2 SAT STAYS AT 95%. INFORMED PT TO NOT GET UP SUDDENLY , ASK FOR HELP . VERBALIZED UNDERSTANDING. WILL CONTINUE TO MONITOR PT.
[2019-01-28] MEDS: MECLIZINE 25 MG TAB PO PRN (17:48)
--- NOTE | 2019-01-28 17:54 | NUR ---
ADMINISTERED MEDS TO PT ORDERED. PT SITTING UP IN HIS BED, EATING DINNER. PT STATES HE FEELS DIZZINESS WHILE CUTTING HIS FOOD, ASKING IF HE CAN HAVE MEDS FOR IT. ADMINISTERED ANTIVERT . INFORMED PT TO CHAD FOR HELP , NOT TO GET UP OR AMBULATE BY HIMSELF. EDUCATED HIM OF FALL RISK. PT VERBALIZED UNDERSTANDING. CALL LIGHT WITHIN PTS REACH. PLACED URINAL AT HIS BEDSIDE. WILL CONTINUE TO MONITOR PT.
--- NOTE | 2019-01-28 19:10 | NUR ---
ENDORSED PT TO PM NURSE AT THE BEDSIDE. PT IN STABLE CONDITION.
--- NOTE | 2019-01-28 19:30 | NUR ---
RECEIVED BEDSIDE REPORT FROM DAY SHIFT RN, PATIENT IN BED, ON 4 L NC, V/S STABLE. PLACED ON FALL RISK PRECAUTIONS DUE TO PATIENT CC DIZZINESS. PATIENT DENIES DIZZINESS NOW. IV IN LEFT AC 20 G, SL. CALL LIGHT WITHIN REACH WILL CONTINUE TO MONITOR.
[2019-01-28] MEDS: SIMVASTATIN 40 MG TAB PO SCH (20:54)
--- NOTE | 2019-01-28 20:56 | NUR ---
DUE MEDICATION GIVEN, EDUCATION PROVIDED
--- NOTE | 2019-01-28 21:55 | NUR ---
PATIENT RESTING IN BED, NO SIGNS OF DISTRESS, EDUCATION PROVIDED TO KEEP O2 ON.
[2019-01-29] MEDS: MECLIZINE 25 MG TAB PO PRN (01:20)
--- NOTE | 2019-01-29 01:20 | NUR ---
PATIENT C/O FEELING DIZZY WILL MEDICATE
[2019-01-29 03:52] VITALS: BP 118/88
--- NOTE | 2019-01-29 03:56 | NUR ---
PATIENT IN BED, DENIES FEELING DIZZY, SB/AFIB ON TELE, V/S STABLE, PLACED PATIENT ON 3 L NC O2SAT 93%.
[2019-01-29] MEDS: LEVOTHYROXINE 0.1 MG TAB PO SCH (05:30)
--- NOTE | 2019-01-29 05:32 | NUR ---
DUE THYROID MEDICATION GIVEN
--- NOTE | 2019-01-29 07:21 | NUR ---
RECEIVED BEDSIDE REPORT FROM LEGISLATIVE DIRECTOR RN. PATIENT IS IN BED ON 3L NC, NO SIGNS OF DISTRESS. AAOX 4. PT ON FALL RISK PRECAUTIONS DUE TO PATIENT CC DIZZINESS. PATIENT DENIES DIZZINESS AT THIS MOMENT. IV IN LEFT AC 20G, SL. INTRODUCED SELF TO PT. COMPLETED ENVIRONMENTAL CHECK. DISCUSSED PLAN OF CARE WITH PT. PT VERBALIZED UNDERSTANDING. WILL ROUND FREQUENTLY ON PT.
--- NOTE | 2019-01-29 07:25 | NUR ---
ENDORSED PATIENT TO DAY SHIFT NURSE PATIENT STABLE
[2019-01-29 07:49] LABS: BASOPHILS % (AUTO) 0.5 % (0.0-2.0); EOSINOPHILS # (AUTO) 0.1 K/uL (0-0.4); HEMATOCRIT 31.6 % (36-52); HEMOGLOBIN 10.4 g/dL (12.0-18.0); LYMPHOCYTES # (AUTO) 0.9 K/uL (2.0-11.5); LYMPHOCYTES % (AUTO) 14.6 % (20.5-51.1); MEAN CORPUSCULAR HEMOGLOBIN 33 pg (27-31); MEAN CORPUSCULAR HGB CONC 33 g/dL (33-37); MEAN CORPUSCULAR VOLUME 100.1 fL (80-94); MONOCYTES # (AUTO) 0.5 K/uL (0.8-1.0); MONOCYTES % (AUTO) 8.2 % (1.7-9.3); NEUTROPHILS # (AUTO) 4.9 K/uL (1.8-7.7); NEUTROPHILS % (AUTO) 75.7 % (42.2-75.2); PLATELET COUNT (AUTO) 175 K/uL (140-450); RED BLOOD CELL COUNT(AUTO) 3.16 MIL/uL (4.20-6.10); WHITE BLOOD COUNT (AUTO) 6.4 K/uL (4.8-10.8)
[2019-01-29 08:00] VITALS: BP 129/81
[2019-01-29 08:15] LABS: ALBUMIN 3.3 g/dL (3.4-5.0); CARBON DIOXIDE 35.7 mmol/L (21-32); CREATININE 0.9 mg/dL (0.7-1.3); POTASSIUM 3.7 mmol/L (3.5-5.1); TOTAL BILIRUBIN 0.4 mg/dL (0.0-1.0)
--- NOTE | 2019-01-29 08:42 | NUR ---
PATIENT HAS BEEN SCREENED AND CATEGORIZED HIGH NUTRITION RISK. PATIENT WILL BE SEEN WITHIN 1-2 DAYS OF ADMISSION. 01/29/[address]
[2019-01-29] MEDS: FUROSEMIDE 40 MG/4 ML VIAL IVP SCH ×2 (08:55→16:39)
[2019-01-29] MEDS: ALLOPURINOL 300 MG TAB PO SCH (08:55)
[2019-01-29] MEDS: LISINOPRIL 20 MG TAB PO SCH (08:56)
[2019-01-29] MEDS: RIVAROXABAN 10 MG TAB PO SCH (08:58)
[2019-01-29] MEDS: TAMSULOSIN 0.4 MG CAP PO SCH (08:59)
[2019-01-29] MEDS: POTASSIUM CHLORIDE 10 MEQ TABER PO SCH (08:59)
[2019-01-29] MEDS ORDERED: FUROSEMIDE 40 MG TAB PO SCH (09:00)
[2019-01-29] MEDS ORDERED: NON-FORMULARY ITEM (Lisinopril 20 MG) PO SCH (09:00)
[2019-01-29] MEDS ORDERED: POTASSIUM CHLORIDE 10 MEQ TABER PO SCH (09:00)
[2019-01-29] MEDS ORDERED: RIVAROXABAN 10 MG TAB PO SCH (09:00)
--- NOTE | 2019-01-29 09:07 | NUR ---
PT O2 SAT IS 93% ON RA. PT VERBALIZES NO DISTRESS OR SOB. PT AMBULATORY TO RESTROOM WITH NO DISTRESS NOTED OR REPORTED FROM PT.
--- NOTE | 2019-01-29 09:09 | NUR ---
ADMINISTERED MORNING MEDS TP PT. PT TOLERATED THEM WELL. NO SIGNS OF DISTRESS OR PAIN. PT DENIES SOB AT THIS TIME. O2 SAT IS 92-93% ON RA. WILL CONTINUE TO ROUND FREQUENTLY ON PT. BED IN LOW POSITION, CALL LIGHT WITHIN REACH.
--- NOTE | 2019-01-29 11:15 | NUR ---
PT SLEEPING IN BED. NO SIGNS OF PAIN OR DISTRESS AT THIS TIME. NO SOB. WILL CONTINUE TO ROUND FREQUENTLY ON PT.
[2019-01-29 12:00] VITALS: BP 100/62
--- NOTE | 2019-01-29 13:24 | NUR ---
PT SITTING IN CHAIR AT BEDSIDE. NO COMPLAINTS OF SOB OR PAIN. WILL ROUND FREQUENTLY ON PT. BED IN LOW POSITION, CALL LIGHT WITHIN REACH.
--- NOTE | 2019-01-29 14:35 | NUR ---
01/29/19 RD INITIAL ASSESSMENT COMPLETED PLEASE REFER TO NUTRITION ASSESSMENT UNDER CARE ACTIVITY FOR ESTIMATED NUTRITIONAL NEEDS. 1. RECOMMEND CARDIAC DIET 2. TLC DIET EDUCATION WAS PROVIDED 3. RD TO FOLLOW-UP 5-7 DAYS, LOW RISK BENJAMIN HOOKS RD
--- NOTE | 2019-01-29 15:30 | NUR ---
PT RESTING IN BED. NO COMPLAINTS OF PAIN OR SOB AT THIS TIME. WILL CONTINUE TO ROUND FREQUENTLY ON PT.
[2019-01-29 16:00] VITALS: BP 116/81
--- NOTE | 2019-01-29 17:25 | NUR ---
PT SLEEPING IN BED. NO SIGNS OF DISTRESS OR PAIN. WILL CONTINUE TO MONITOR PT CLOSELY. CALL LIGHT WITHIN REACH.
--- NOTE | 2019-01-29 19:39 | NUR ---
ENDORSED PT TO REMOTE ADVISOR FOR CONTINUITY OF CARE. PT IN STABLE CONDITION AT THIS TIME.
--- NOTE | 2019-01-29 19:45 | NUR ---
RECEIVED PT IN STABLE CONDITION FROM AM NURSE. AWAKE,ALERT AND ORIENTED X4. TELE PT- CONTROLLED A FIB. WITH NO DISTRESS NOTED. ON ROOM AIR THIS WITH O2 SAT 96%. USES URINAL WHICH IS AT BEDSIDE. CALL LIGHT PLACED WITHIN EASY REACH. HL ON THE LEFT AC G#20, CLEAR AND PATENT. INSTRUCTED PT TO CALL IF NEED ASSISTANCE. WILL CONTINUE TO MONITOR.
[2019-01-29 20:00] VITALS: BP 122/71
--- NOTE | 2019-01-29 21:00 | NUR ---
PT TOOK SCHED NIGHT MED. NO C/O ANY PAIN NOTED.
[2019-01-29] MEDS: SIMVASTATIN 40 MG TAB PO SCH (21:02)
--- NOTE | 2019-01-29 22:30 | NUR ---
PT ASLEEP. NO SOB NOTED. WILL CONTINUE TO MONITOR.
[2019-01-29 23:50] VITALS: BP 134/78
--- NOTE | 2019-01-30 00:01 | NUR ---
HR ON MONITOR DROP TO 34/MIN @2348. BP 134/78. O2 SAT 97 % RA BUT SOMETIMES DOWN TO 87% . BUT PT SAID HE IS OK. NO PAIN NOTED. PAGED DR TORREZ. DR Yomaira MARROQUIN EQUIPMENT SUPERINTENDENT. WILL WAIT FOR CALL BACK.
--- NOTE | 2019-01-30 00:10 | NUR ---
/ LOPEZ CALLED BACK . MADE AWARE OF THE PT EPISODES OF LOW HR 34/MIN. BUT BACK TO CONTROLLED AFIB. WITH ORDERS.
[2019-01-30] MEDS ORDERED: ATROPINE 0.4 MG/ML VIAL IVP PRN (00:15)
--- NOTE | 2019-01-30 00:15 | NUR ---
PT PUT BACK TO O22LNC , O2 SAT ONLY 87%. NOW O2 SAT UP TO 97%. WILL CONTINUE TO MONITOR.
--- NOTE | 2019-01-30 02:30 | NUR ---
O2 SAT FLUCTUATE FROM 82%-87% WITH O22L/NC. WHEN CHECKED PT, ASLEEP.WOKE UP AND O2 SAT WENT UP TO 97%. PT SAID HE IS OK. NO C/O ANY DISCOMFORT . WILL CONTINUE TO MONITOR.
[2019-01-30 03:58] VITALS: BP 124/69
--- NOTE | 2019-01-30 04:00 | NUR ---
PT IS STABLE. NO DISTRESS NOTED. WILL CONTINUE TO MONITOR.
--- NOTE | 2019-01-30 05:30 | NUR ---
BED LINENS CHANGED. SPILLED SOME URINE FROM THE URINAL.
[2019-01-30] MEDS: LEVOTHYROXINE 0.1 MG TAB PO SCH (05:46)
--- NOTE | 2019-01-30 07:18 | NUR ---
ENDORSED PT IN STABLE CONDITION TO AM NURSE FOR CONTINUITY OF CARE.
--- NOTE | 2019-01-30 07:19 | NUR ---
RECEIVED BEDSIDE REPORT FROM HARRIS MOYA. PATIENT ON TELE MONITOR AND STANDARD PRECAUTIONS IN PLACE. PATIENT AAOX4 AND COMMUNICATES APPROPRIATELY. PATIENT SKIN INTACT. IV ON L AC 20 G, ASYMPTOMATIC PATENT AND INTACT. FALL RISK PROTOCOL IN PLACE. BED IN LOW POSITION, CALL LIGHT WITHIN REACH, SIDE RAILS X2 UP
[2019-01-30 08:00] VITALS: BP 105/71
[2019-01-30] MEDS: FUROSEMIDE 40 MG/4 ML VIAL IVP SCH (08:08)
[2019-01-30] MEDS: POTASSIUM CHLORIDE 10 MEQ TABER PO SCH (08:09)
[2019-01-30] MEDS: TAMSULOSIN 0.4 MG CAP PO SCH (08:10)
[2019-01-30] MEDS: LISINOPRIL 20 MG TAB PO SCH (08:10)
[2019-01-30] MEDS: ALLOPURINOL 300 MG TAB PO SCH (08:11)
[2019-01-30] MEDS: RIVAROXABAN 10 MG TAB PO SCH (08:13)
--- NOTE | 2019-01-30 08:21 | NUR ---
ADMINISTERED SCHEDULED MEDS. PATIENT TOLERATED WELL, SITTING ON SIDE OF BED EATING BREAKFAST. 2L O2 VIA NC, O2 SAT 90%, NO DISTRESS NOTED
[2019-01-30 08:25] LABS: BASOPHILS % (AUTO) 0.5 % (0.0-2.0); EOSINOPHILS % (AUTO) 0.8 % (0.0-4.0); HEMATOCRIT 33.6 % (36-52); HEMOGLOBIN 11.2 g/dL (12.0-18.0); LYMPHOCYTES # (AUTO) 0.9 K/uL (2.0-11.5); MEAN CORPUSCULAR HEMOGLOBIN 33 pg (27-31); MEAN CORPUSCULAR HGB CONC 33 g/dL (33-37); MEAN CORPUSCULAR VOLUME 99.3 fL (80-94); MONOCYTES # (AUTO) 0.5 K/uL (0.8-1.0); MONOCYTES % (AUTO) 8.8 % (1.7-9.3); NEUTROPHILS % (AUTO) 73.9 % (42.2-75.2); PLATELET COUNT (AUTO) 178 K/uL (140-450); RED BLOOD CELL COUNT(AUTO) 3.39 MIL/uL (4.20-6.10); RED CELL DISTRIBUTION WIDTH 16.2 % (11.6-13.7); WHITE BLOOD COUNT (AUTO) 5.4 K/uL (4.8-10.8)
[2019-01-30 08:28] LABS: ALBUMIN 3.2 g/dL (3.4-5.0); CREATININE 0.9 mg/dL (0.7-1.3)
[2019-01-30 08:50] LABS: ANION GAP 10.1 (8-16); POTASSIUM 4.1 mmol/L (3.5-5.1)
[2019-01-30 09:03] LABS: TOTAL BILIRUBIN 0.5 mg/dL (0.0-1.0)
--- NOTE | 2019-01-30 10:49 | NUR ---
PATIENT NOW ON 1 L O2 VIA NC, O2 SAT 95%, PATIENT SLEEPING WITH NO DISTRESS NOTED
[2019-01-30 12:00] VITALS: BP 100/50
[2019-01-30] MEDS ORDERED: FURO-572 PO (12:06)
--- NOTE | 2019-01-30 13:35 | NUR ---
ADMINISTERED PNEUMONIA VACCINE, PATIENT TOLERATED WELL
--- NOTE | 2019-01-30 15:30 | NUR ---
DISCHARGE INSTRUCTIONS PROVIDED TO PATIENT. PNA VACCINE ADMINISTERED. FLU NOT IN SEASON. SKIN INTACT. ALL BELONGINGS SENT HOME WITH PATIENT. REMOVED WRIST BAND AND IV, IV TIP INTACT. PROVIDED PATIENT WITH PRESCRIPTION OF NEW MEDICATION. EDUCATED PATIENT TO FOLLOW UP WITH [facility] AND PCP WITHIN 2 WEEKS AND PATIENT VERBALIZED UNDERSTANDING. INSTRUCTED PATIENT TO RETURN TO NEAREST ER IF HE EXPERIENCES SOB, FEVER, PAIN, OR WORSENING OF SYMPTOMS. ANSWERED ALL QUESTIONS AND CONCERNS. PATIENT GOING HOME AND PICKED UP BY ART, FRIEND AND WHEELED TO MAIN LOBBY
== END 2019-01-30 15:30 | disposition home or self-care (01) | DRG 291 ==
LOC: MED 10:35 → MTU 15:24 → OBSVTOIN 01-28 11:10
PROVIDERS: ADMIT Internal Medicine Pulmonary Disease; ATTEND Internal Medicine Pulmonary Disease
PROC: 3E0234Z Introduction of Serum, Toxoid and Vaccine into Muscle, Percutaneous Approach (ICD-10-PCS; principal; 2019-01-27)
DX: I11.0 Hypertensive heart disease with heart failure (principal); I50.21 Acute systolic (congestive) heart failure; J96.01 Acute respiratory failure with hypoxia; E05.00 Thyrotoxicosis with diffuse goiter without thyrotoxic crisis or storm; I48.91 Unspecified atrial fibrillation; Z79.899 Other long term (current) drug therapy; Z23 Encounter for immunization
CPT/HCPCS: 96360; 99218; 99285; G0378; 36415; 70450; 71045; 80053; 81003; 83605; 83880; 84439; 84443; 84484; 85025; 85610; 85730; 87040; 87081; 87086; 90732; 93005; J0461; J1940; J7030; J8597; Q0092

== ENCOUNTER 2019-02-05 21:11 | Emergency (ER) | payer OTHER ==
[~2019-02-05] VITALS: Ht 180.3 cm; Wt 121.1 kg
[~2019-02-05 21:11] MED LIST changes: -BUS5 PO; +FURO-572 PO; -FURO40TA9 PO; -IBUP1TAB PO
[2019-02-05 21:20] VITALS: BP 129/111
--- NOTE | 2019-02-05 21:27 | NUR ---
PT AMBULATED TO BED 05.
--- NOTE | 2019-02-05 21:32 | NUR ---
BIB SELF REPORTING SOB AND COUGH SINCE THIS MORNING. CLEAR LUNG SOUND BILAT. SPO2 92 ON ROOM AIR. BREATHING DEEP AND LABORED. STATES HE FEELS LIKE HE HAS MUCUS IN HIS THROAT BUT IS NOT COUGHING ANYTHING UP. DENIES PAIN, FEVER, ABD PAIN, NVD.
[2019-02-05] MEDS ORDERED: ASPIRIN 325 MG TAB PO ONE (22:10)
[2019-02-05] MEDS ORDERED: ALBUTEROL 0.083% 2.5 MG/3 ML NEBU INH ONE (22:10)
[2019-02-05] MEDS ORDERED: FUROSEMIDE 40 MG/4 ML VIAL IVP ONE (22:10)
[2019-02-05] MEDS ORDERED: NACL 0.9% 1,000 ML IV ONE (22:10)
[2019-02-05] MEDS ORDERED: NITROGLYCERIN 2% 1 GM PKT TP ONE (22:10)
--- NOTE | 2019-02-05 22:21 | NUR ---
Respiratory Therapist at bedside for respiratory intervention.
[2019-02-05 22:24] LABS: BASOPHILS % (AUTO) 0.4 % (0.0-2.0); EOSINOPHILS % (AUTO) 0.7 % (0.0-4.0); HEMATOCRIT 30.2 % (36-52); HEMOGLOBIN 10.1 g/dL (12.0-18.0); LYMPHOCYTES # (AUTO) 0.6 K/uL (2.0-11.5); LYMPHOCYTES % (AUTO) 8.9 % (20.5-51.1); MEAN CORPUSCULAR HEMOGLOBIN 33 pg (27-31); MEAN CORPUSCULAR HGB CONC 33 g/dL (33-37); MEAN CORPUSCULAR VOLUME 99.5 fL (80-94); MONOCYTES # (AUTO) 0.7 K/uL (0.8-1.0); MONOCYTES % (AUTO) 9.9 % (1.7-9.3); NEUTROPHILS # (AUTO) 5.6 K/uL (1.8-7.7); NEUTROPHILS % (AUTO) 80.1 % (42.2-75.2); PLATELET COUNT (AUTO) 195 K/uL (140-450); RED BLOOD CELL COUNT(AUTO) 3.04 MIL/uL (4.20-6.10); RED CELL DISTRIBUTION WIDTH 16.3 % (11.6-13.7)
[2019-02-05 22:48] LABS: ANION GAP 13.3 (8-16); CARBON DIOXIDE 28.9 mmol/L (21-32); POTASSIUM 4.2 mmol/L (3.5-5.1)
[2019-02-05 22:54] LABS: ALBUMIN 3.4 g/dL (3.4-5.0); TOTAL BILIRUBIN 0.6 mg/dL (0.0-1.0)
--- NOTE | 2019-02-06 00:22 | NUR ---
IV removed, catheter intact and site benign. Applied folded 4x4 gauze and tape to stop bleeding.
[2019-02-06 00:23] VITALS: BP 122/93
--- NOTE | 2019-02-06 00:23 | NUR ---
Patient discharged with v/s stable. Written and verbal after care instructions given and explained. Patient alert, oriented and verbalized understanding of instructions. Ambulatory with steady gait. All questions addressed prior to discharge. ID band removed. Patient advised to follow up with PMD. Rx of Prednsone 20mg, Lasix 80mg and Albuterol 90mcg/actuation given. Patient educated on indication of medication including possible reaction and side effects. Opportunity to ask questions provided and answered.
== END 2019-02-06 00:23 | disposition home or self-care (01) ==
LOC: MED 21:11
DX: I50.9 Heart failure, unspecified (principal); B34.9 Viral infection, unspecified; I11.0 Hypertensive heart disease with heart failure; E07.9 Disorder of thyroid, unspecified; Z79.899 Other long term (current) drug therapy
CPT/HCPCS: 36415; 71045; 80053; 83880; 84484; 85025; 85610; 85730; 93005; 94640; 96361; 96374; 99284; J1940; J7030; J7613

== ENCOUNTER 2019-04-07 07:12 | Emergency (ER) | payer OTHER ==
[~2019-04-07] VITALS: Ht 180.3 cm; Wt 116.1 kg
[2019-04-07 07:15] VITALS: BP 108/53
--- NOTE | 2019-04-07 07:20 | NUR ---
PT TO BED 4 WITH WALKER
--- NOTE | 2019-04-07 07:30 | NUR ---
PT PRESENTS TO ED WITH C/O LEFT SHOULDER PAIN X 3 DAYS. PATIENT STATES "I THINK I SLEPT ON MY SHOULDER WRONG". NO OBVIOUS DEFORMITY. PAIN IS 9/10 AT THIS TIME.
[2019-04-07] MEDS ORDERED: HYDROcodone/APAP 5/325 MG 1 TAB TAB PO ONE (07:45)
--- NOTE | 2019-04-07 07:48 | NUR ---
X RAY AT BEDSIDE
[2019-04-07 09:10] VITALS: BP 108/53
--- NOTE | 2019-04-07 09:11 | NUR ---
Patient discharged with v/s stable. Written and verbal after care instructions given and explained. Patient alert, oriented and verbalized understanding of instructions. Ambulatory with walker assitance. All questions addressed prior to discharge. ID band removed. Patient advised to follow up with PMD. Rx of [place] given. Patient educated on indication of medication including possible reaction and side effects. Opportunity to ask questions provided and answered.
== END 2019-04-07 09:11 | disposition home or self-care (01) ==
LOC: MED 07:12
DX: M25.512 Pain in left shoulder (principal); M79.645 Pain in left finger(s); I10 Essential (primary) hypertension; E07.9 Disorder of thyroid, unspecified; Z79.899 Other long term (current) drug therapy
CPT/HCPCS: 73030; 99283

== ENCOUNTER 2019-05-31 01:24 | Emergency (ER) | payer OTHER ==
[~2019-05-31] VITALS: Ht 180.3 cm; Wt 124.7 kg
[2019-05-31 01:27] VITALS: BP 128/59
[2019-05-31] MEDS: LORazepam 0.5 MG TAB PO ONE (02:32)
[2019-05-31 02:39] LABS: BASOPHILS % (AUTO) 0.5 % (0.0-2.0); EOSINOPHILS # (AUTO) 0.1 K/uL (0-0.4); EOSINOPHILS % (AUTO) 0.8 % (0.0-4.0); HEMATOCRIT 36.7 % (36-52); LYMPHOCYTES # (AUTO) 1.2 K/uL (2.0-11.5); LYMPHOCYTES % (AUTO) 11.9 % (20.5-51.1); MEAN CORPUSCULAR HEMOGLOBIN 28 pg (27-31); MEAN CORPUSCULAR HGB CONC 33 g/dL (33-37); MONOCYTES # (AUTO) 0.7 K/uL (0.8-1.0); MONOCYTES % (AUTO) 6.8 % (1.7-9.3); PLATELET COUNT (AUTO) 213 K/uL (140-450); RED BLOOD CELL COUNT(AUTO) 4.22 MIL/uL (4.20-6.10); RED CELL DISTRIBUTION WIDTH 17.5 % (11.6-13.7); WHITE BLOOD COUNT (AUTO) 10.1 K/uL (4.8-10.8)
[2019-05-31 02:53] LABS: ANION GAP 14.7 (8-16); CREATININE 1.2 mg/dL (0.7-1.3); POTASSIUM 3.7 mmol/L (3.5-5.1)
[2019-05-31 02:59] LABS: PROTHROMBIN TIME 16.6 secs (10.8-13.4)
[2019-05-31 03:03] LABS: ALBUMIN 3.1 g/dL (3.4-5.0); TOTAL BILIRUBIN 0.7 mg/dL (0.0-1.0)
[2019-05-31 03:08] LABS: CREATINE KINASE MB 1.9 ng/mL (0-3.6)
[2019-05-31 03:25] VITALS: BP 88/27
[2019-05-31] MEDS: FUROSEMIDE 20 MG/2 ML VIAL IVP ONE (03:44)
[2019-05-31] MEDS ORDERED: SULF1TAB12 PO (06:37)
[2019-05-31] MEDS ORDERED: RIVA20TA PO (06:37)
[2019-05-31] MEDS ORDERED: TRAZ-343 PO (06:37)
[2019-05-31] MEDS ORDERED: FURO-570 PO (06:38)
[2019-05-31 07:12] VITALS: BP 140/50
== END 2019-05-31 07:12 | disposition short-term general hospital (02) ==
LOC: MED 01:24
DX: I11.0 Hypertensive heart disease with heart failure (principal); I50.9 Heart failure, unspecified; E03.9 Hypothyroidism, unspecified; Z98.890 Other specified postprocedural states; Z79.899 Other long term (current) drug therapy
CPT/HCPCS: 36415; 71045; 80053; 82550; 82553; 83690; 83880; 84484; 85025; 85610; 85730; 93005; 94660; 96374; 99284; J1940; Q0092

== ENCOUNTER 2020-03-05 10:56 | Emergency (ER) | payer OTHER ==
[~2020-03-05] VITALS: Ht 177.8 cm; Wt 84.4 kg
[~2020-03-05 10:56] MED LIST changes: +FURO-570 PO; -POTA10TE30 PO; +SULF1TAB12 PO; -TAMS0.4C96 PO; +TRAZ-343 PO
[2020-03-05 10:58] VITALS: BP 120/57
--- NOTE | 2020-03-05 11:03 | NUR ---
69 Y/O MALE FROM HOME C/O CHILLS, HEADACHE, SOB, FATIGUE, AND DIARRHEA X 3 DAYS. PT STATES HE WAS SEEN AT [facility] YESTERDAY AND NOT TESTED FOR COVID-19. STATES 6/10 GENERAL BODY PAIN. RR EVEN AND UNLABORED, PT SITTING UPRIGHT AWAKE AND ALERT. ABLE TO SPEAK IN FULL SENTENCES WITHOUT DIFFICULTY. VSS MEDHX: GRAVES DISEASE, HYPOTHYROIDISM, CARDIAC DISORDER
--- NOTE | 2020-03-05 11:10 | NUR ---
DR DAVENPORT IN TENT EXAMINING PT
--- NOTE | 2020-03-05 11:15 | NUR ---
COVID-19 SWAB COLLECTED FROM PT AND GIVEN TO PHLEB
[2020-03-05 11:21] VITALS: BP 120/57
--- NOTE | 2020-03-05 11:21 | NUR ---
Patient discharged with v/s stable. Written and verbal after care instructions given and explained. Patient verbalized understanding. Ambulatory with steady gait. All questions addressed prior to discharge. Advised to follow up with PMD.
== END 2020-03-05 11:21 | disposition home or self-care (01) ==
LOC: MED 10:56
DX: R06.02 Shortness of breath (principal); E03.9 Hypothyroidism, unspecified; E05.00 Thyrotoxicosis with diffuse goiter without thyrotoxic crisis or storm; I10 Essential (primary) hypertension; I51.89 Other ill-defined heart diseases; R05 Cough; R19.7 Diarrhea, unspecified; Z79.899 Other long term (current) drug therapy; Z20.828 Contact with and (suspected) exposure to other viral communicable diseases
CPT/HCPCS: 99283; U0003